=== PATIENT | male | born 1930 | race Asian ===

== ENCOUNTER 2019-08-23 09:50 | Inpatient (IN) | payer MEDICARE, MEDICAID ==
[~2019-08-23] VITALS: Ht 165.1 cm; Wt 67.6 kg
[2019-08-23] VITALS (7 sets, daily range): BP systolic 136–142; BP diastolic 74–88
--- NOTE | 2019-08-23 10:00 | NUR ---
ED Nurse Note: Patient arrived by ambulance from home complaining of nausea and intermittent vomiting for the past 30 days. Patient AxO x 4. Patient on registered nurse cardiac, bed in lowest position. VSS. Blood sent to lab. Addendum: 08/23/19 at 1221 by NFI[facility] ED Nurse Note: Per patient, if he does vomit, it is 2 - 3 hours after eating. No blood in vomit, per patient. No diarrhea, stool formed, but smaller than normal. Patient has lost about 20 lbs since he has been eating less and visited [facility] about a month ago for the same reason as today's visit.
--- NOTE | 2019-08-23 10:09 | NUR ---
ED Nurse Note: RX and PCP office contacted.
[2019-08-23] MEDS ORDERED: VASCEPA1 GM PO (10:14)
[2019-08-23] MEDS ORDERED: LYRICA75 M1 ORAL (10:14)
[2019-08-23] MEDS ORDERED: ATORVASTATIN CA20 MG ORAL (10:14)
[2019-08-23] MEDS ORDERED: TRAMADOL HCL50 MG ORAL (10:14)
[2019-08-23] MEDS ORDERED: FERROUS SULFAT325 MG ORAL (10:14)
[2019-08-23] MEDS ORDERED: TRIAZOLAM0.25 MG PO (10:14)
[2019-08-23] MEDS ORDERED: FLOMAX0.4 MG ORAL (10:14)
[2019-08-23] MEDS ORDERED: MECLIZINE HCL25 MG ORAL (10:14)
[2019-08-23] MEDS ORDERED: PANTOPRAZOLE SO40 MG ORAL (10:14)
[2019-08-23] MEDS ORDERED: CLOPIDOGREL75 MG ORAL (10:14)
[2019-08-23] MEDS ORDERED: NAMENDA5 MG ORAL (10:14)
[2019-08-23] MEDS ORDERED: LOSARTAN POTASS50 MG ORAL (10:14)
[2019-08-23] MEDS ORDERED: Omnipaque-300 100ml vial INJ PRN (10:30)
[2019-08-23 11:00] LABS: HEMOGLOBIN 7.6 G/DL (14.2-18.0); MEAN CORPUSCULAR VOLUME 87 FL (80-99); PLATELET COUNT 94 K/UL (150-450); RED BLOOD COUNT 2.41 M/UL (4.70-6.10); RED CELL DISTRIBUTION WIDTH 13.6 % (11.6-14.8); WHITE BLOOD COUNT 2.9 K/UL (4.8-10.8)
[2019-08-23 11:13] LABS: ANION GAP 13 mmol/L (5-15); BLOOD UREA NITROGEN 27 mg/dL (7-18); CALCIUM 8.9 MG/DL (8.5-10.1); CARBON DIOXIDE 27 MMOL/L (21-32); CHLORIDE 99 MMOL/L (98-107); CREATININE 1.6 MG/DL (0.55-1.30); POTASSIUM 3.6 MMOL/L (3.5-5.1); SODIUM 139 MMOL/L (136-145)
--- NOTE | 2019-08-23 11:17 | Emergency Room Report ---
History of Present Illness General Chief Complaint: Nausea Source: Patient Present Illness HPI Patient is an 88-year-old male who presents after increased nausea and vomiting. Patient had some prior history of similar symptoms in the past. Patient is currently on IV antibiotics for finger infection. Patient recently been hospitalized at [facility]. He reports having postprandial emesis denies any bloody stools. He reports having decreased stool caliber for approximately 1 year. He reports having a negative colonoscopy proximally a year ago. Prior history of appendectomy. He reports having 20 pound weight loss. Allergies: Coded Allergies: No Known Allergies (Unverified , 08/23/19) Patient History Past Medical History: see triage record Reviewed Nursing Documentation: PMH: Agreed; PSxH: Agreed Nursing Documentation-PMH Past Medical History: No Stated History Review of Systems All Other Systems: negative except mentioned in HPI Physical Exam Vital Signs Date Time Temp Pulse Resp B/P (MAP) Pulse Ox O2 Delivery O2 Flow Rate FiO2 08/23/19 09:47 97.9 90 16 144/84 (104) 97 Room Air Sp02 EP Interpretation: reviewed, normal General Appearance: normal inspection, alert, GCS 15, Chronically Ill Head: atraumatic ENT: normal ENT inspection, hearing grossly normal, normal voice Neck: normal inspection, full range of motion, supple, no bony tend Respiratory: normal inspection, lungs clear, normal breath sounds, no respiratory distress, no retraction, no wheezing Cardiovascular #1: regular rate, rhythm, no edema Gastrointestinal: normal inspection, normal bowel sounds, soft, no guarding, no hernia, other - surgical scar Genitourinary: no CVA tenderness Musculoskeletal: normal inspection, back normal, normal range of motion Neurologic: normal inspection, alert, responsive, speech normal Psychiatric: normal inspection, judgement/insight normal, mood/affect normal Medical Decision Making Diagnostic Impression: Primary Impression: Pancytopenia Additional Impressions: Weight loss, unintentional Dehydration ER Course Patient presented for increased generalized weakness. Differential diagnosis include was not limited to anemia, myocardial infarction, cancer, ischemic bowel among others. because of patient's complexity imaging studies and laboratory testing was ordered. Patient was given IV fluids and laboratory testing were ordered. Patient was noted to be pancytopenic with initial hemoglobin greater than 7. Patient had reportedly had intermittent episodes in the past. Old records were obtained from [facility]. Patient was noted to have multiple episodes of postprandial emesis. CT imaging read by radiology showed no acute abnormalities however there are multiple chronic findings see radiology report for full details. Patient does not show any definite evidence of acute bleeding and transfusion will be deferred to inpatient if necessary. Dr. Castañeda was contacted for inpatient management due to panel physician. Labs Test 08/23/19 10:30 White Blood Count 2.9 K/UL (4.8-10.8) Red Blood Count 2.41 M/UL (4.70-6.10) Hemoglobin 7.6 G/DL (14.2-18.0) Hematocrit 21.0 % (42.0-52.0) Mean Corpuscular Volume 87 FL (80-99) Mean Corpuscular Hemoglobin 31.5 PG (27.0-31.0) Mean Corpuscular Hemoglobin Concent 36.3 G/DL (32.0-36.0) Red Cell Distribution Width 13.6 % (11.6-14.8) Platelet Count 94 K/UL (150-450) Mean Platelet Volume 8.1 FL (6.5-10.1) Neutrophils (%) (Auto) % (45.0-75.0) Lymphocytes (%) (Auto) % (20.0-45.0) Monocytes (%) (Auto) % (1.0-10.0) Eosinophils (%) (Auto) % (0.0-3.0) Basophils (%) (Auto) % (0.0-2.0) Differential Total Cells Counted 100 Neutrophils % (Manual) 58 % (45-75) Lymphocytes % (Manual) 33 % (20-45) Monocytes % (Manual) 5 % (1-10) Eosinophils % (Manual) 4 % (0-3) Basophils % (Manual) 0 % (0-2) Band Neutrophils 0 % (0-8) Platelet Estimate Decreased Platelet Morphology Normal Hypochromasia Anisocytosis 1+ Prothrombin Time 11.0 SEC (9.30-11.50) Prothromb Time International Ratio 1.0 (0.9-1.1) Activated Partial Thromboplast Time 25 SEC (23-33) Sodium Level 139 MMOL/L (136-145) Potassium Level 3.6 MMOL/L (3.5-5.1) Chloride Level 99 MMOL/L (98-107) Carbon Dioxide Level 27 MMOL/L (21-32) Anion Gap 13 mmol/L (5-15) Blood Urea Nitrogen 27 mg/dL (7-18) Creatinine 1.6 MG/DL (0.55-1.30) Estimat Glomerular Filtration Rate mL/min (>60) Glucose Level 130 MG/DL (74-106) Calcium Level 8.9 MG/DL (8.5-10.1) Total Bilirubin 0.5 MG/DL (0.2-1.0) Aspartate Amino Transf (AST/SGOT) 29 U/L (15-37) Alanine Aminotransferase (ALT/SGPT) 29 U/L (12-78) Alkaline Phosphatase 79 U/L (46-116) Total Protein 5.6 G/DL (6.4-8.2) Albumin 3.1 G/DL (3.4-5.0) Globulin 2.5 g/dL Albumin/Globulin Ratio 1.2 (1.0-2.7) Lipase 250 U/L (73-393) EKG Diagnostic Results Rate: normal Rhythm: NSR ST Segments: no acute changes Last Vital Signs Date Time Temp Pulse Resp B/P (MAP) Pulse Ox O2 Delivery O2 Flow Rate FiO2 08/23/19 09:47 97.9 90 16 144/84 (104) 97 Room Air Status: unchanged Disposition: ADMITTED INPATIENT Condition: Stable Referrals: NOT CHOSEN IPA/,REFERRING (PCP) Reza Aden MD Aug 23, 2019 11:17
[2019-08-23 11:18] LABS: ALANINE AMINOTRANSFERASE 29 U/L (12-78); ALBUMIN 3.1 G/DL (3.4-5.0); ALBUMIN/GLOBULIN RATIO 1.2 (1.0-2.7); ALKALINE PHOSPHATASE 79 U/L (46-116); ASPARTATE AMINO TRANSFERASE 29 U/L (15-37); BILIRUBIN,TOTAL 0.5 MG/DL (0.2-1.0)
--- NOTE | 2019-08-23 11:45 | NUR ---
ED Nurse Note: Urine sent to lab.
[2019-08-23 11:54] LABS: APPEARANCE,URINE CLEAR; BILIRUBIN, URINE NEGATIVE (NEGATIVE); COLOR,URINE PALE YELLOW; GLUCOSE, URINE (UA) NEGATIVE (NEGATIVE); KETONES,URINE 1+ (NEGATIVE); LEUKOCYTE ESTERASE ,URINE NEGATIVE (NEGATIVE); NITRITE,URINE NEGATIVE (NEGATIVE); PH,URINE 6 (4.5-8.0); PROTEIN,URINE 3+ (NEGATIVE); UROBILINOGEN,URINE NORMAL MG/DL (0.0-1.0)
--- NOTE | 2019-08-23 12:30 | NUR ---
ED Nurse Note: Per Dr. Aden, will wait to see images of CT before transfering pt to floor.
--- NOTE | 2019-08-23 14:05 | NUR ---
ED Nurse Note: Report given to Karen MCCABE.
--- NOTE | 2019-08-23 14:06 | Diagnostic Imaging Report ---
Indication: Abdominal pain Technique: Continuous helical transaxial imaging of the abdomen and pelvis was obtained from the lung bases to the pubic symphysis. No intravenous contrast was administered. Coronal 2-D reformats were also obtained. Automatic Exposure Control was utilized. Total Dose length Product (DLP): 630.[address] Dose Index Volume (CTDIvol): 10.8 mGy Comparison: none Findings: Reticular densities are demonstrated at both lung bases. This is associated with bronchiectasis and indicative of mild fibrosis and scarring. Paraseptal blebs are also noted at the periphery of the lung bases especially anteromedially and posteromedially. Trace pericardial fluid noted. Small hiatal hernia is present. Aorta is mildly calcified. The gallbladder is contracted. There is no adrenal mass. There is a suggestion of a hypodense mass in the right kidney measuring about 2 cm. This is probably cystic but not definitively proven on the current study is obtained. There is no evidence of bowel obstruction. Prostate calcification noted.. Discrete diverticula noted in the colon. There is narrowing of intervertebral discs and accompanying endplate osteophyte formation. Hypertrophied facet joints also demonstrated. IMPRESSION: No acute findings appreciated. Trace pericardial effusion Basilar lung fibrosis with traction bronchiectasis. Mild diverticulosis of the colon. No evidence of acute diverticulitis Hiatal hernia Contracted gallbladder. 2 cm right renal hypodensity probably cysts. 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
--- NOTE | 2019-08-23 15:10 | NUR ---
NURSE NOTES: Called Dr. Castañeda's office and left a message regarding admission orders.
--- NOTE | 2019-08-23 15:46 | NUR ---
NURSE NOTES: Left a second message to Dr. Castañeda office. Waiting for a call back.
[2019-08-23] MEDS ORDERED: Acetaminophen 500mg (ES) tab ORAL PRN (16:45)
--- NOTE | 2019-08-23 19:20 | NUR ---
NURSE NOTES: Received pt from ESTELLE Jones. Pt is awake and resting in bed, in no distress. IV site intact. Bed locked in lowest position, call light within reach. Will continue with plan of care.
[2019-08-23] MEDS ORDERED: D5NS 1,000 ML IV SCH (19:30)
[2019-08-23] MEDS ORDERED: Albuterol/Ipratropium 3ml neb HHN PRN (20:00)
[2019-08-23] MEDS: Tamsulosin 0.4mg cap ORAL SCH (20:13)
--- NOTE | 2019-08-23 22:17 | Pulmonology Progress Note ---
Assessment/Plan Assessment/Plan Pulmonary Consultation HPI Patient is an 88-year old man admitted with nausea and vomiting, worse on eating , noted to have dehydration. Recently on IV antibiotics for finger infection at [facility]. Previously had a negative colonoscopy approximately a year ago. Prior history of appendectomy. He reports having 20 pound weight loss. Denies dysuria/fevers.Denies cough, SOB, chest pain. 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 Allergies: No Known Allergies Past Medical History: Finger infection All Other Systems: negative except mentioned in HPI Physical Exam Vital Signs Noted Date Time Temp Pulse Resp B/P (MAP) Pulse Ox O2 Delivery O2 Flow Rate FiO2 08/23/19 09:47 97.9 90 16 144/84 (104) 97 Room Air General Appearance: normal inspection, alert, GCS 15, Chronically Ill, mild wasting, pale Head: atraumatic ENT: normal ENT inspection, hearing grossly normal, normal voice, dryish mm Neck: normal inspection, full range of motion, supple, no bony tend Respiratory: normal inspection, lungs clear, normal breath sounds, no respiratory distress, no retraction, no wheezing Cardiovascular: regular rate, rhythm, normal HS1, HS2, no edema Gastrointestinal: normal inspection, normal bowel sounds, soft, no guarding, no hernia, other - surgical scar Genitourinary: no CVA tenderness Musculoskeletal: normal inspection, back normal, normal range of motion Neurologic: normal inspection, alert, responsive, speech normal Impression: Recent IV antibiotics for finger infection Nausea and Vomiting, normal Amylase, no intra-abdominal abnormality on CT abdomen Pancytopenia Basal ILD/Bronchiectatic changes Weight loss, unintentional Dehydration Plan: IVF Monitor labs Transfuse PRN O2 PRN HHN PRN R/o DVT, if negative SCD UA CXR Will need outpatient CT chest/PFT Labs Test 08/23/19 10:30 White Blood Count 2.9 K/UL (4.8-10.8) Red Blood Count 2.41 M/UL (4.70-6.10) Hemoglobin 7.6 G/DL (14.2-18.0) Hematocrit 21.0 % (42.0-52.0) Mean Corpuscular Volume 87 FL (80-99) Mean Corpuscular Hemoglobin 31.5 PG (27.0-31.0) Mean Corpuscular Hemoglobin Concent 36.3 G/DL (32.0-36.0) Red Cell Distribution Width 13.6 % (11.6-14.8) Platelet Count 94 K/UL (150-450) Mean Platelet Volume 8.1 FL (6.5-10.1) Neutrophils (%) (Auto) % (45.0-75.0) Lymphocytes (%) (Auto) % (20.0-45.0) Monocytes (%) (Auto) % (1.0-10.0) Eosinophils (%) (Auto) % (0.0-3.0) Basophils (%) (Auto) % (0.0-2.0) Differential Total Cells Counted 100 Neutrophils % (Manual) 58 % (45-75) Lymphocytes % (Manual) 33 % (20-45) Monocytes % (Manual) 5 % (1-10) Eosinophils % (Manual) 4 % (0-3) Basophils % (Manual) 0 % (0-2) Band Neutrophils 0 % (0-8) Platelet Estimate Decreased Platelet Morphology Normal Hypochromasia Anisocytosis 1+ Prothrombin Time 11.0 SEC (9.30-11.50) Prothromb Time International Ratio 1.0 (0.9-1.1) Activated Partial Thromboplast Time 25 SEC (23-33) Sodium Level 139 MMOL/L (136-145) Potassium Level 3.6 MMOL/L (3.5-5.1) Chloride Level 99 MMOL/L (98-107) Carbon Dioxide Level 27 MMOL/L (21-32) Anion Gap 13 mmol/L (5-15) Blood Urea Nitrogen 27 mg/dL (7-18) Creatinine 1.6 MG/DL (0.55-1.30) Estimat Glomerular Filtration Rate mL/min (>60) Glucose Level 130 MG/DL (74-106) Calcium Level 8.9 MG/DL (8.5-10.1) Total Bilirubin 0.5 MG/DL (0.2-1.0) Aspartate Amino Transf (AST/SGOT) 29 U/L (15-37) Alanine Aminotransferase (ALT/SGPT) 29 U/L (12-78) Alkaline Phosphatase 79 U/L (46-116) Total Protein 5.6 G/DL (6.4-8.2) Albumin 3.1 G/DL (3.4-5.0) Globulin 2.5 g/dL Albumin/Globulin Ratio 1.2 (1.0-2.7) Lipase 250 U/L (73-393) EKG: Rate: normal Rhythm: NSR ST Segments: no acute changes Subjective ROS Limited/Unobtainable: No Allergies: Coded Allergies: No Known Allergies (Unverified , 08/23/19) Objective Last 24 Hour Vital Signs Date Time Temp Pulse Resp B/P (MAP) Pulse Ox O2 Delivery O2 Flow Rate FiO2 08/23/19 21:48 99 18 100 Room Air 21 97 18 99 08/23/19 21:46 97 18 99 Room Air 21 08/23/19 18:20 97.4 96 22 144/84 Room Air 08/23/19 16:00 91 08/23/19 16:00 96.6 90 18 141/88 (105) 98 08/23/19 14:59 Room Air 08/23/19 14:10 97.9 96 19 140/84 99 Room Air 08/23/19 13:30 96 19 140/84 99 08/23/19 12:00 92 18 139/83 99 08/23/19 11:00 90 20 142/74 99 08/23/19 10:50 94 17 Room Air 08/23/19 10:00 97.9 96 17 136/82 98 Room Air 08/23/19 09:47 97.9 90 16 144/84 (104) 97 Room Air Laboratory Tests 08/23/19 10:30: White Blood Count 2.9L, Red Blood Count 2.41L, Hemoglobin 7.6L, Hematocrit 21.0L , Mean Corpuscular Volume 87, Mean Corpuscular Hemoglobin 31.5H, Mean Corpuscular Hemoglobin Concent 36.3H, Red Cell Distribution Width 13.6, Platelet Count 94L, Mean Platelet Volume 8.1, Neutrophils (%) (Auto) , Lymphocytes (%) (Auto) , Monocytes (%) (Auto) , Eosinophils (%) (Auto) , Basophils (%) (Auto) , Differential Total Cells Counted 100, Neutrophils % ( Manual) 58, Lymphocytes % (Manual) 33, Monocytes % (Manual) 5, Eosinophils % ( Manual) 4H, Basophils % (Manual) 0, Band Neutrophils 0, Platelet Estimate DecreasedL, Platelet Morphology Normal, Hypochromasia , Anisocytosis 1+, Prothrombin Time 11.0, Prothromb Time International Ratio 1.0, Activated Partial Thromboplast Time 25, Sodium Level 139, Potassium Level 3.6, Chloride Level 99, Carbon Dioxide Level 27, Anion Gap 13, Blood Urea Nitrogen 27H, Creatinine 1.6H, Estimat Glomerular Filtration Rate , Glucose Level 130H, Calcium Level 8.9, Total Bilirubin 0.5, Aspartate Amino Transf (AST/SGOT) 29, Alanine Aminotransferase (ALT/SGPT) 29, Alkaline Phosphatase 79, C-Reactive Protein, Quantitative < 0.4, Total Protein 5.6L, Albumin 3.1L, Globulin 2.5, Albumin/Globulin Ratio 1.2, Lipase 250 08/23/19 11:40: Urine Color Pale yellow, Urine Appearance Clear, Urine pH 6, Urine Specific [place] 1.010, Urine Protein 3+H, Urine Glucose (UA) Negative, Urine Ketones 1+H , Urine Blood 5+H, Urine Nitrite Negative, Urine Bilirubin Negative, Urine Urobilinogen Normal, Urine Leukocyte Esterase Negative, Urine RBC 20-30H, Urine WBC 0, Urine Squamous Epithelial Cells Occasional, Urine Bacteria Occasional Current Medications Medications (Trade) Dose Ordered Sig/Kaya Route PRN Reason Start Time Stop Time Status Last Admin Dose Admin Acetaminophen (Tylenol) 500 mg Q4H PRN ORAL Mild Pain/Temp > 100.5 08/23/19 16:45 09/22/19 16:44 Albuterol/ Ipratropium (Albuterol/ Ipratropium) 3 ml Q6H PRN HHN Shortness of Breath 08/23/19 20:00 08/28/19 19:59 08/23/19 21:43 Barium Sulfate (Readi-Cat 2) 450 ml NOW PRN ORAL Radiology Procedure 08/23/19 10:30 08/25/19 10:19 Dextrose/Sodium Chloride 1,000 ml @ 50 mls/hr Q20H IV 08/23/19 19:30 09/22/19 19:29 08/23/19 19:34 Iohexol (OMNIPAQUE-300 100ml) 100 ml NOW PRN INJ Radiology Procedure 08/23/19 10:30 08/25/19 10:19 Ondansetron HCl (Zofran) 4 mg Q6H PRN IVP Nausea & Vomiting 08/23/19 16:45 09/22/19 16:44 Pantoprazole (Protonix) 40 mg EVERY 12 HOURS IVP 08/23/19 21:00 09/22/19 20:59 Tamsulosin HCl (Flomax) 0.4 mg BID ORAL 08/23/19 20:00 09/22/19 19:59 08/23/19 20:13 Sherif Birch MD Aug 23, 2019 22:17
[2019-08-23] MEDS: Pantoprazole Inj IVP SCH (22:36)
[2019-08-24] VITALS: BP 137/69
[2019-08-24 04:00] VITALS: BP 137/79
--- NOTE | 2019-08-24 07:10 | NUR ---
HAND-OFF: Report given to ESTELLE Jones. Pt in stable condition. Endorsed plan of care.
--- NOTE | 2019-08-24 07:10 | NUR ---
NURSE NOTES: Report received from ESTELLE Packer. In RA. Denies pain or SOB. IV running D5 NS @ 60mL/hr. Bed on lowest position, side rails upx2, brakes engaged. Call light within easy reach. Pt able to demonstrate call light use and acknowledged understanding.
[2019-08-24 07:25] LABS: APPEARANCE,URINE CLEAR; BILIRUBIN, URINE NEGATIVE (NEGATIVE); COLOR,URINE PALE YELLOW; GLUCOSE, URINE (UA) NEGATIVE (NEGATIVE); KETONES,URINE NEGATIVE (NEGATIVE); LEUKOCYTE ESTERASE ,URINE NEGATIVE (NEGATIVE); NITRITE,URINE NEGATIVE (NEGATIVE); PH,URINE 6 (4.5-8.0); PROTEIN,URINE 2+ (NEGATIVE); UROBILINOGEN,URINE NORMAL MG/DL (0.0-1.0)
[2019-08-24 07:26] LABS: HEMATOCRIT 19.9 % (42.0-52.0); MEAN CORPUSCULAR VOLUME 88 FL (80-99); PLATELET COUNT 74 K/UL (150-450); RED BLOOD COUNT 2.25 M/UL (4.70-6.10); RED CELL DISTRIBUTION WIDTH 13.6 % (11.6-14.8); WHITE BLOOD COUNT 3.5 K/UL (4.8-10.8)
--- NOTE | 2019-08-24 07:42 | General Progress Note ---
Assessment/Plan Assessment/Plan: Assessment - N/V, ? etiology - Weight loss - pancytopenia, ? marrow d/o - Azotemia - hematuria - basilar lung fibrosis - diverticulosis - hiatal hernia - ASCVD Recommendations - PPI - clears / advance as tolerated - check OB - Heme evaluation - EGD today Subjective Allergies: Coded Allergies: No Known Allergies (Unverified , 08/23/19) Subjective No events s/p blood transfusion platelets better no vomiting Objective Last 24 Hour Vital Signs Date Time Temp Pulse Resp B/P (MAP) Pulse Ox O2 Delivery O2 Flow Rate FiO2 08/24/19 06:40 89 16 96 Room Air 21 08/24/19 04:00 96 08/24/19 04:00 98.0 96 20 137/79 (98) 95 08/24/19 00:00 97.9 98 18 137/69 (91) 94 08/24/19 00:00 98 08/23/19 21:48 99 18 100 Room Air 97 18 99 08/23/19 21:46 97 18 99 Room Air 21 08/23/19 21:00 Room Air 08/23/19 20:00 98 08/23/19 20:00 97.6 98 20 142/81 (101) 93 08/23/19 18:20 97.4 96 22 144/84 Room Air 08/23/19 16:00 91 08/23/19 16:00 96.6 90 18 141/88 (105) 98 08/23/19 14:59 Room Air 08/23/19 14:10 97.9 96 19 140/84 99 Room Air 08/23/19 13:30 96 19 140/84 99 08/23/19 12:00 92 18 139/83 99 08/23/19 11:00 90 20 142/74 99 08/23/19 10:50 94 17 Room Air 08/23/19 10:00 97.9 96 17 136/82 98 Room Air 08/23/19 09:47 97.9 90 16 144/84 (104) 97 Room Air Intake and Output 08/23/19 08/24/19 19:00 07:00 Intake Total 1500 ml Output Total 250 ml 900 ml Balance 1250 ml -900 ml Intake Oral 500 ml IV Total 1000 ml Output Urine Total 250 ml 900 ml # Voids 1 2 # Bowel Movements 1 Laboratory Tests 08/23/19 10:30: White Blood Count 2.9L, Red Blood Count 2.41L, Hemoglobin 7.6L, Hematocrit 21.0L , Mean Corpuscular Volume 87, Mean Corpuscular Hemoglobin 31.5H, Mean Corpuscular Hemoglobin Concent 36.3H, Red Cell Distribution Width 13.6, Platelet Count 94L, Mean Platelet Volume 8.1, Neutrophils (%) (Auto) , Lymphocytes (%) (Auto) , Monocytes (%) (Auto) , Eosinophils (%) (Auto) , Basophils (%) (Auto) , Differential Total Cells Counted 100, Neutrophils % ( Manual) 58, Lymphocytes % (Manual) 33, Monocytes % (Manual) 5, Eosinophils % ( Manual) 4H, Basophils % (Manual) 0, Band Neutrophils 0, Platelet Estimate DecreasedL, Platelet Morphology Normal, Hypochromasia , Anisocytosis 1+, Prothrombin Time 11.0, Prothromb Time International Ratio 1.0, Activated Partial Thromboplast Time 25, Sodium Level 139, Potassium Level 3.6, Chloride Level 99, Carbon Dioxide Level 27, Anion Gap 13, Blood Urea Nitrogen 27H, Creatinine 1.6H, Estimat Glomerular Filtration Rate , Glucose Level 130H, Calcium Level 8.9, Total Bilirubin 0.5, Aspartate Amino Transf (AST/SGOT) 29, Alanine Aminotransferase (ALT/SGPT) 29, Alkaline Phosphatase 79, C-Reactive Protein, Quantitative < 0.4, Total Protein 5.6L, Albumin 3.1L, Globulin 2.5, Albumin/Globulin Ratio 1.2, Lipase 250 08/23/19 11:40: Urine Color Pale yellow, Urine Appearance Clear, Urine pH 6, Urine Specific [place] 1.010, Urine Protein 3+H, Urine Glucose (UA) Negative, Urine Ketones 1+H , Urine Blood 5+H, Urine Nitrite Negative, Urine Bilirubin Negative, Urine Urobilinogen Normal, Urine Leukocyte Esterase Negative, Urine RBC 20-30H, Urine WBC 0, Urine Squamous Epithelial Cells Occasional, Urine Bacteria Occasional 08/24/19 06:07: White Blood Count [Pending], Red Blood Count [Pending], Hemoglobin [Pending], Hematocrit [Pending], Mean Corpuscular Volume [Pending], Mean Corpuscular Hemoglobin [Pending], Mean Corpuscular Hemoglobin Concent [Pending], Red Cell Distribution Width [Pending], Platelet Count [Pending], Mean Platelet Volume [ Pending], Neutrophils (%) (Auto) [Pending], Lymphocytes (%) (Auto) [Pending], Monocytes (%) (Auto) [Pending], Eosinophils (%) (Auto) [Pending], Basophils (%) (Auto) [Pending], Sodium Level [Pending], Potassium Level [Pending], Chloride Level [Pending], Carbon Dioxide Level [Pending], Blood Urea Nitrogen [Pending], Creatinine [Pending], Estimat Glomerular Filtration Rate [Pending], Glucose Level [Pending], Calcium Level [Pending], Total Bilirubin [Pending], Aspartate Amino Transf (AST/SGOT) [Pending], Alanine Aminotransferase (ALT/SGPT) [Pending] , Alkaline Phosphatase [Pending], Total Protein [Pending], Albumin [Pending], Globulin [Pending], Hemoglobin A1c 7.1H, Uric Acid [Pending], Phosphorus Level [ Pending], Magnesium Level [Pending], Iron Level [Pending], Unsaturated Iron Binding [Pending], Ferritin [Pending], Gamma Glutamyl Transpeptidase [Pending], Troponin I [Pending], Pro-B-Type Natriuretic Peptide [Pending], Triglycerides Level [Pending], Cholesterol Level [Pending], LDL Cholesterol [Pending], HDL Cholesterol [Pending], Cholesterol/HDL Ratio [Pending], Vitamin B12 Level [ Pending], Folate [Pending], Thyroid Stimulating Hormone (TSH) [Pending] 08/24/19 06:22: Urine Color Pale yellow, Urine Appearance Clear, Urine pH 6, Urine Specific [place] 1.010, Urine Protein 2+H, Urine Glucose (UA) Negative, Urine Ketones Negative, Urine Blood 5+H, Urine Nitrite Negative, Urine Bilirubin Negative, Urine Urobilinogen Normal, Urine Leukocyte Esterase Negative, Urine RBC [Pending ], Urine WBC [Pending], Urine Squamous Epithelial Cells [Pending], Urine Bacteria [Pending], Urine Random Sodium 102 Height (Feet): 5 Height (Inches): 3.00 Weight (Pounds): 149 Objective Thin man NCAT supple CTA RR Abd soft NT ND no edema non focal Radha Lundy MD Aug 24, 2019 07:42
--- NOTE | 2019-08-24 07:45 | NUR ---
NURSE NOTES: Reported Hgb and Hct lab results to Dr. Castañeda. Order received from Dr. Castañeda to put physician consult to [facility] and to give him a call.
--- NOTE | 2019-08-24 07:48 | NUR ---
NURSE NOTES: Order given to CN by Dr. Castañeda to send Pt. to [facility].
--- NOTE | 2019-08-24 07:50 | NUR ---
NURSE NOTES: Left a message to Dr. Mcgowan regarding Hgb and Hct. Waiting for a call back.
[2019-08-24 07:52] LABS: HEMOGLOBIN 6.9 G/DL (14.2-18.0)
[2019-08-24 07:55] LABS: ALANINE AMINOTRANSFERASE 28 U/L (12-78); ALBUMIN 2.8 G/DL (3.4-5.0); ALBUMIN/GLOBULIN RATIO 1.3 (1.0-2.7); ALKALINE PHOSPHATASE 67 U/L (46-116); ANION GAP 12 mmol/L (5-15); ASPARTATE AMINO TRANSFERASE 28 U/L (15-37); BILIRUBIN,TOTAL 0.5 MG/DL (0.2-1.0); BLOOD UREA NITROGEN 25 mg/dL (7-18); CALCIUM 7.8 MG/DL (8.5-10.1); CARBON DIOXIDE 26 MMOL/L (21-32); CHLORIDE 102 MMOL/L (98-107); CHOLESTEROL 113 MG/DL (< 200); CREATININE 1.5 MG/DL (0.55-1.30); FERRITIN 357 NG/ML (8-388); GAMMA GLUTAMYL TRANSPEPTIDASE 21 U/L (5-85); HDL CHOLESTEROL 38 MG/DL (40-60); PHOSPHORUS 2.8 MG/DL (2.5-4.9); POTASSIUM 3.3 MMOL/L (3.5-5.1); SODIUM 140 MMOL/L (136-145); TRIGLYCERIDES 100 MG/DL (30-150)
[2019-08-24 07:58] LABS: % IRON SATURATION 91 % (15-50); IRON 144 ug/dL (50-175); TOTAL IRON BINDING CAPACITY 158 ug/dL (250-450)
[2019-08-24 08:00] VITALS: BP 146/83
--- NOTE | 2019-08-24 08:18 | NUR ---
NURSE NOTES: Informed Renetta, daughter, Pt. is not stable enough to be transferred to another hospital at this moment per MD due to lab results. Daughter has agreed.
[2019-08-24] MEDS: Tamsulosin 0.4mg cap ORAL SCH ×2 (09:42→17:51)
[2019-08-24] MEDS: Pantoprazole Inj IVP SCH ×2 (09:43→20:57)
--- NOTE | 2019-08-24 09:52 | NUR ---
RADIOLOGY DEPT., CHEST X-RAY DONE.-P.DYE
[2019-08-24] MEDS ORDERED: Omnipaque-300 100ml vial INJ PRN (10:30)
--- NOTE | 2019-08-24 11:52 | Diagnostic Imaging Report ---
Indication: Dyspnea Comparison: None A single view chest radiograph was obtained. Findings: No definite infiltrate or pulmonary vascular congestion identified. The heart is enlarged. The aorta is mildly enlarged consistent with atherosclerotic vascular disease. The bones are osteopenic. Impression: No acute disease
--- NOTE | 2019-08-24 11:55 | NUR ---
NURSE NOTES: Blood transfusion started. Education has been given regarding S/S to communicate with RN. VS before transfusion BP 140/83 P 97, O2 sat 96%, RR17 and T97.9.
[2019-08-24 12:00] VITALS: BP 140/79
--- NOTE | 2019-08-24 13:23 | NUR ---
TRANSFER TO FLOOR: Patient transferred to [facility], per Dr. Castañeda. Report given to ESTELLE Moon. Belongings and medications given to Red. Family and or S/O informed of transfer.
--- NOTE | 2019-08-24 13:56 | Pulmonology Progress Note ---
Assessment/Plan Assessment/Plan Pulmonary Consultation HPI Patient is an 88-year old man admitted with nausea and vomiting, worse on eating , noted to have dehydration. Recently on IV antibiotics for finger infection at [facility]. Previously had a negative colonoscopy approximately a year ago. Prior history of appendectomy. He reports having 20 pound weight loss. Denies dysuria/fevers.Denies cough, SOB, chest pain. 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 Worsening anemia, GI following Allergies: No Known Allergies Past Medical History: Finger infection All Other Systems: negative except mentioned in HPI Physical Exam Vital Signs Noted General Appearance: normal inspection, alert, GCS 15, Chronically Ill, mild wasting, pale Head: atraumatic ENT: normal ENT inspection, hearing grossly normal, moist mm Neck: normal inspection, full range of motion, supple, no bony tend Respiratory: normal inspection, lungs clear, normal breath sounds, no respiratory distress, no retraction, no wheezing Cardiovascular: regular rate, rhythm, normal HS1, HS2, no edema Gastrointestinal: normal inspection, normal bowel sounds, soft, no guarding, no hernia, other - surgical scar Genitourinary: no CVA tenderness Musculoskeletal: normal inspection, back normal, normal range of motion Neurologic: normal inspection, alert, responsive, speech normal Impression: Recent IV antibiotics for finger infection Nausea and Vomiting, normal Amylase, no intra-abdominal abnormality on CT abdomen Worsening anemia Pancytopenia Basal ILD/Bronchiectatic changes Weight loss, unintentional Dehydration ASVCD - elevated NPA Plan: IVF PRN Monitor labs Transfuse PRN O2 PRN HHN PRN R/o DVT, if negative SCD UA CXR - no infiltartes Will need outpatient CT chest/PFT Labs Test 08/23/19 10:30 White Blood Count 2.9 K/UL (4.8-10.8) Red Blood Count 2.41 M/UL (4.70-6.10) Hemoglobin 7.6 G/DL (14.2-18.0) Hematocrit 21.0 % (42.0-52.0) Mean Corpuscular Volume 87 FL (80-99) Mean Corpuscular Hemoglobin 31.5 PG (27.0-31.0) Mean Corpuscular Hemoglobin Concent 36.3 G/DL (32.0-36.0) Red Cell Distribution Width 13.6 % (11.6-14.8) Platelet Count 94 K/UL (150-450) Mean Platelet Volume 8.1 FL (6.5-10.1) Neutrophils (%) (Auto) % (45.0-75.0) Lymphocytes (%) (Auto) % (20.0-45.0) Monocytes (%) (Auto) % (1.0-10.0) Eosinophils (%) (Auto) % (0.0-3.0) Basophils (%) (Auto) % (0.0-2.0) Differential Total Cells Counted 100 Neutrophils % (Manual) 58 % (45-75) Lymphocytes % (Manual) 33 % (20-45) Monocytes % (Manual) 5 % (1-10) Eosinophils % (Manual) 4 % (0-3) Basophils % (Manual) 0 % (0-2) Band Neutrophils 0 % (0-8) Platelet Estimate Decreased Platelet Morphology Normal Hypochromasia Anisocytosis 1+ Prothrombin Time 11.0 SEC (9.30-11.50) Prothromb Time International Ratio 1.0 (0.9-1.1) Activated Partial Thromboplast Time 25 SEC (23-33) Sodium Level 139 MMOL/L (136-145) Potassium Level 3.6 MMOL/L (3.5-5.1) Chloride Level 99 MMOL/L (98-107) Carbon Dioxide Level 27 MMOL/L (21-32) Anion Gap 13 mmol/L (5-15) Blood Urea Nitrogen 27 mg/dL (7-18) Creatinine 1.6 MG/DL (0.55-1.30) Estimat Glomerular Filtration Rate mL/min (>60) Glucose Level 130 MG/DL (74-106) Calcium Level 8.9 MG/DL (8.5-10.1) Total Bilirubin 0.5 MG/DL (0.2-1.0) Aspartate Amino Transf (AST/SGOT) 29 U/L (15-37) Alanine Aminotransferase (ALT/SGPT) 29 U/L (12-78) Alkaline Phosphatase 79 U/L (46-116) Total Protein 5.6 G/DL (6.4-8.2) Albumin 3.1 G/DL (3.4-5.0) Globulin 2.5 g/dL Albumin/Globulin Ratio 1.2 (1.0-2.7) Lipase 250 U/L (73-393) EKG: Rate: normal Rhythm: NSR ST Segments: no acute changes Subjective ROS Limited/Unobtainable: No Allergies: Coded Allergies: No Known Allergies (Unverified , 08/23/19) Objective Last 24 Hour Vital Signs Date Time Temp Pulse Resp B/P (MAP) Pulse Ox O2 Delivery O2 Flow Rate FiO2 08/24/19 12:00 95 08/24/19 12:00 97.1 86 19 140/79 (99) 97 08/24/19 09:00 Room Air 08/24/19 08:00 100 08/24/19 08:00 98.2 96 18 146/83 (104) 97 08/24/19 06:40 89 16 96 Room Air 21 08/24/19 04:00 96 08/24/19 04:00 98.0 96 20 137/79 (98) 95 08/24/19 00:00 97.9 98 18 137/69 (91) 94 08/24/19 00:00 98 08/23/19 21:48 99 18 100 Room Air 21 97 18 99 08/23/19 21:46 97 18 99 Room Air 21 08/23/19 21:00 Room Air 08/23/19 20:00 98 08/23/19 20:00 97.6 98 20 142/81 (101) 93 08/23/19 18:20 97.4 96 22 144/84 Room Air 08/23/19 16:00 91 08/23/19 16:00 96.6 90 18 141/88 (105) 98 08/23/19 14:59 Room Air 08/23/19 14:10 97.9 96 19 140/84 99 Room Air Intake and Output 08/23/19 08/24/19 19:00 07:00 Intake Total 1500 ml Output Total 250 ml 900 ml Balance 1250 ml -900 ml Intake Oral 500 ml IV Total 1000 ml Output Urine Total 250 ml 900 ml # Voids 1 2 # Bowel Movements 1 Laboratory Tests 08/24/19 06:07: White Blood Count 3.5L, Red Blood Count 2.25L, Hemoglobin 6.9*L, Hematocrit 19.9L, Mean Corpuscular Volume 88, Mean Corpuscular Hemoglobin 30.8, Mean Corpuscular Hemoglobin Concent 34.8, Red Cell Distribution Width 13.6, Platelet Count 74L, Mean Platelet Volume 8.4, Neutrophils (%) (Auto) , Lymphocytes (%) ( Auto) , Monocytes (%) (Auto) , Eosinophils (%) (Auto) , Basophils (%) (Auto) , Differential Total Cells Counted 100, Neutrophils % (Manual) 73, Lymphocytes % ( Manual) 16L, Monocytes % (Manual) 8, Eosinophils % (Manual) 2, Basophils % ( Manual) 1, Band Neutrophils 0, Platelet Estimate DecreasedL, Platelet Morphology Normal, Red Blood Cell Morphology , Hypochromasia 3+, Sodium Level 140, Potassium Level 3.3L, Chloride Level 102, Carbon Dioxide Level 26, Anion Gap 12, Blood Urea Nitrogen 25H, Creatinine 1.5H, Estimat Glomerular Filtration Rate , Glucose Level 136H, Hemoglobin A1c 7.1H, Uric Acid 4.7, Calcium Level 7.8L, Phosphorus Level 2.8, Magnesium Level 1.3L, Iron Level 144, Total Iron Binding Capacity 158L, Percent Iron Saturation 91H, Unsaturated Iron Binding 14L , Ferritin 357, Total Bilirubin 0.5, Gamma Glutamyl Transpeptidase 21, Aspartate Amino Transf (AST/SGOT) 28, Alanine Aminotransferase (ALT/SGPT) 28, Alkaline Phosphatase 67, Troponin I 0.053, Pro-B-Type Natriuretic Peptide 846H, Total Protein 4.9L, Albumin 2.8L, Globulin 2.1, Albumin/Globulin Ratio 1.3, Triglycerides Level 100, Cholesterol Level 113, LDL Cholesterol 60, HDL Cholesterol 38L, Cholesterol/HDL Ratio 3.0L, Vitamin B12 Level 1124H, Folate 18.2, Thyroid Stimulating Hormone (TSH) 1.227, HIV (1&2) Antibody Rapid Negative 08/24/19 06:22: Urine Color Pale yellow, Urine Appearance Clear, Urine pH 6, Urine Specific [place] 1.010, Urine Protein 2+H, Urine Glucose (UA) Negative, Urine Ketones Negative, Urine Blood 5+H, Urine Nitrite Negative, Urine Bilirubin Negative, Urine Urobilinogen Normal, Urine Leukocyte Esterase Negative, Urine RBC TntcH, Urine WBC 0-2, Urine Squamous Epithelial Cells Occasional, Urine Bacteria Occasional, Urine Fine Granular Casts 0-2H, Urine Random Sodium 102 Current Medications Medications (Trade) Dose Ordered Sig/Kaya Route PRN Reason Start Time Stop Time Status Last Admin Dose Admin Acetaminophen (Tylenol) 500 mg Q4H PRN ORAL Mild Pain/Temp > 100.5 08/24/19 14:00 09/22/19 13:59 Albuterol/ Ipratropium (Albuterol/ Ipratropium) 3 ml Q6H PRN HHN Shortness of Breath 08/24/19 14:00 08/28/19 19:59 Barium Sulfate (Readi-Cat 2) 450 ml NOW PRN ORAL Radiology Procedure 08/24/19 13:30 08/25/19 10:19 Dextrose/Sodium Chloride 1,000 ml @ 50 mls/hr Q20H IV 08/24/19 14:00 09/22/19 13:59 Iohexol (OMNIPAQUE-300 100ml) 100 ml NOW PRN INJ Radiology Procedure 08/24/19 10:30 08/25/19 10:19 Magnesium Sulfate 100 ml @ 100 mls/hr Q1H IVPB 08/24/19 14:00 08/24/19 16:59 Ondansetron HCl (Zofran) 4 mg Q6H PRN IVP Nausea & Vomiting 08/24/19 14:00 09/22/19 13:59 Pantoprazole (Protonix) 40 mg EVERY 12 HOURS IVP 08/24/19 21:00 09/22/19 20:59 Tamsulosin HCl (Flomax) 0.4 mg BID ORAL 08/24/19 18:00 09/22/19 19:59 Sherif Birch MD Aug 24, 2019 13:56
--- NOTE | 2019-08-24 13:58 | NUR ---
RD ASSESSMENT & RECOMMENDATIONS SEE CARE ACTIVITY FOR COMPLETE ASSESSMENT DAILY ESTIMATED NEEDS: Needs based on Wt loss/ 56kg 30-35 kcals/kg 1613-2074 total kcals 1-1.5 g protein/kg 56-84 g total protein 25-30 mL/kg 0955-2518 total fluid mLs NUTRITION DIAGNOSIS: * Increased kcal/prot needs R/T recent wt loss as evidenced by pt reports significant wt loss of ~20lbs/14% in 3 months, reports poor appetite, c/o N/V. * Altered nutrition related lab values R/T diabetes, clinical condition as evidenced by A1C of 7.1, low K (3.3), low mag (1.3). CURRENT DIET:CLEAR LIQUID DIET PO DIET RECOMMENDATIONS: Advance diet per MD -> CCHO MED/ soft easy chew texture (pt is edentulous) ADDITIONAL RECOMMENDATIONS: * Calibrated bedscale wt for accurate CBW -> weekly wt monitoring given recent wt loss * Ensure Clear TID w/ meals while on CLEAR LIQUID DIET * Consider appetite stimulant -> pt reports "no appetite" for a long period of time + wt loss * Monitor for diet advancement, PO tolerance and acceptance * Monitor BGs, need for hypoglycemic agents (A1C 7.1)
[2019-08-24] MEDS ORDERED: Acetaminophen 500mg (ES) tab ORAL PRN (14:00)
[2019-08-24] MEDS ORDERED: Albuterol/Ipratropium 3ml neb HHN PRN (14:00)
--- NOTE | 2019-08-24 14:16 | NUR ---
NURSE NOTES: RN RECEIVED PT FROM ESTELLE HOFFMANN FROM TELEMETRY. PT IN STABLE CONDITION. IN NO APPARENT DISTRESS. FIRST BAG OF PRBC RUNNING ON RIGHT FOREARM. IV SITE ASYMPTOMATIC, PATENT AND INTACT. BELONGINGS CHECKED, AND ALL ACCOUNTED. HEARING AID IN PT'S LEFT EAR. PT DOES NOT HAVE DENTURES AT BEDSIDE. PT STATES HE HAS THEM AT HOME. PT MADE AWARE OF EGD FOR TOMORROW. PT VERBALIZED UNDERSTANDING. PT EDUCATED ON FALL/SAFETY PRECAUTIONS AND HOW TO USE CALL LIGHT. EDUCATED TO NOT WALK INDEPENDENTLY. BED IN LOWEST POSITION WITH BEDSIDE RAILS X2 RAISED. HOB ELEVATED, IN SEMI-LO'S POSITION. BED ALARM ON ZONE 1. IN NO APPARENT DISTRESS AT THIS TIME. WILL CONTINUE TO MONITOR.
--- NOTE | 2019-08-24 14:29 | NUR ---
NURSE NOTES: DR HERNANDEZ MADE AWARE FAMILY WISHES TO PLACE PT TO A SNF UPON DISCHARGE. PER DAUGHTER VIRGIE, PT'S CAN NO LONGER TAKE CARE OF PT. DR HERNANDEZ MADE AWARE WITH ORDER FOR CASE MANAGEMENT CONSULT FOR [facility].
--- NOTE | 2019-08-24 14:45 | Consultation ---
DATE OF CONSULTATION: 08/24/2019 CHIEF COMPLAINT: I was asked to see this patient by Dr. Shawn Castañeda for evaluation of vomiting. HISTORY OF PRESENT ILLNESS: The patient is an 88-year-old Icelandic man, who comes into the hospital due to nausea and vomiting. The patient has had a recent hospitalization at the outside hospital where he received antibiotics for hand infection. The patient states he has had approximately 20 pounds weight loss. There was a report of colonoscopy done about a year ago which was reportedly negative and details are not clear. CT scan of the abdomen and pelvis done last night which showed only a hiatal hernia and diverticulosis as well as incidental atherosclerotic cardiovascular disease and basal pulmonary fibrosis. However, the patient's blood count showed pancytopenia of unclear etiology. The patient now admitted for further evaluation and care. PAST MEDICAL HISTORY: History of diverticulosis, pancytopenia, hiatal hernia. ALLERGIES: None. MEDICATIONS: See the chart list for details. FAMILY HISTORY: Noncontributory. SOCIAL HISTORY: The patient is Icelandic speaking. PHYSICAL EXAMINATION: GENERAL: Thin elderly man, seen in his room with the nurse at bedside. HEENT: Normocephalic and atraumatic. Sclerae anicteric. Oropharynx clear. NECK: Supple. CHEST: Clear to auscultation. CARDIOVASCULAR: Revealed a regular rate. ABDOMEN: Good bowel sounds. There is no organomegaly or tenderness. EXTREMITIES: Revealed no edema. NEUROLOGIC: Grossly nonfocal. LABORATORY DATA: Noted. ASSESSMENT: This patient presents with significant degree of pancytopenia of unclear etiology. Given the patient's weight loss and pancytopenia, a bone marrow pathology has to be entertained. The patient's stool occult blood should be checked. An endoscopy can be done given his nausea and vomiting, which he had prior to admission. His weight loss concerning but it is unclear whether this is a gastrointestinal basis or other pathology is concerned. The patient's stool occult blood should be checked and the patient can have endoscopy later this week and possible colonoscopy later day. RECOMMENDATIONS: Per above discussion and per orders written in the chart. Thank you for asking me to participate in care this patient. Radha Lundy M.D. DR: Cherrie JOB#: [id number] CC: ADRYAN
--- NOTE | 2019-08-24 15:00 | History and Physical Report ---
DATE OF ADMISSION: 08/23/2019 HISTORY OF PRESENT ILLNESS: The patient speaks Kinyarwanda only. Does not speak Hong Konger. The patient is here for increased vomiting and weight loss, somewhat cachectic. Recently was put on antibiotics due to hand infection at [place]. The patient also has pancytopenia, anemia, postprandial emesis, and azotemia. The patient admitted for those reasons. PAST MEDICAL HISTORY: Iron deficiency anemia, hyperlipidemia, hypertension, GERD, neuropathy, BPH, chronic pain syndrome, insomnia, weight loss, history of anemia. MEDICATIONS: Lipitor, Plavix, ferrous sulfate, Cozaar, Protonix, Lyrica, Flomax, and calcium. PAST SURGICAL HISTORY: Denies. ALLERGIES: No known allergies. FAMILY HISTORY: Noncontributory. SOCIAL HISTORY: Apparently has no history of smoking, alcohol, or illicit drugs. Kinyarwanda speaking only. REVIEW OF SYSTEMS: HEENT: Denies headaches. RESPIRATORY: Denies shortness of breath. Denies cough. CARDIOVASCULAR: Denies chest pain. GASTROINTESTINAL: Reports vomiting. Denies abdominal pain. EXTREMITIES: Does have chronic pain syndrome. CENTRAL NERVOUS SYSTEM: Denies any change in vision or speech pattern. Feels weak. PHYSICAL EXAMINATION: VITAL SIGNS: Temperature 97.9, pulse is 98, blood pressure 137/69. HEENT: PERRLA. NECK: Supple. No lymphadenopathy. CHEST: Clear to auscultation. CARDIOVASCULAR: Regular rate and rhythm. No murmur or extra sound. GASTROINTESTINAL: Soft, nontender. No organomegaly. EXTREMITIES: No edema. Reflexes equal on both sides. Has somewhat cachexia. LABORATORY DATA: WBC of 2.9, hemoglobin 7.6, platelets of 94. Sodium 139, potassium 3.6, BUN of 27, creatinine 1.6, glucose of 130. ASSESSMENT AND PLAN: Azotemia, pancytopenia, anemia, vomiting. Recent antibiotic due to hand infection. At this point, the hand looks good and it is not warm to touch. No abscesses are seen. It is not tender to touch either. I have consulted Dr. Kaushal Mcgowan, Dr. Birch, Dr. Duarte, Dr. Gregorio Thomas, Dr. Lundy for the above-mentioned diagnoses and treatment. Antibiotics per Dr. Gregorio Thomas. The patient is going to also need IV fluids and transfusion and we will see what Dr. Kaushal Mcogwan wants to do for the pancytopenia workup. I will talk with him about this. Shawn Castañeda M.D. DR: MADHU JOB#: [id number] CC:
[2019-08-24] MEDS: D5NS 1,000 ML IV SCH ×2 (15:06→20:58)
--- NOTE | 2019-08-24 15:38 | NUR ---
NURSE NOTES: PT WAS STARTED ON SECOND BAG OF PRBC. VSS. IN NO APPARENT DISTRESS AT THIS TIME. PT TOLERATING WELL. WILL CONTINUE TO MONITOR.
--- NOTE | 2019-08-24 15:43 | NUR ---
CASE MANAGEMENT: INITIAL REVIEW 88YR OLD MALE BIBA FROM HOME CC: NAUSEA SI: PANCYTOPENIA, DEHYDRATION 97.9 90 16 114/84 97% ON RA H/H 7.6/21.0 BUN 27 CREAT 1.6 BG 130 IS: IV ZOFRAN X1 IVF NS BOLUS X1 : 4E TELE UNIT DCP: HOME WHEN MEDICALLY CLEARED PLAN: CT ABD CASE MANAGEMENT: REVIEW 08/24/19 SI: PANCYTOPENIA, DEHYDRATION 98.2 96 18 146/83 97% ON RA CA+7.8; MG 1.3; WBC 3.5; RBC 2.25; K+ 3.3; H/H 6.9/19.9 BUN 25 CREAT 1.5 BG 136 IS: IV MG SULFATE X4 BAGS IV KCL X3 BAGS IV PROTONIX Q12HR IVF DEXTROSE @50ML/HR : 4E TELE UNIT DCP: HOME WHEN MEDICALLY CLEARED PLAN: BL TX X2 POSS EGD CT ABD SHOWS- hiatal hernia and diverticulosis bone marrow patholog
--- NOTE | 2019-08-24 15:57 | NUR ---
DISCHARGE PLANNING: PATIENT HAS BEEN REFERRED TO [facility] T:[phone] F:[phone] CLINICALS HAVE BEEN FAXED WAITING FOR RESPONSE WILL F/U
[2019-08-24 16:00] VITALS: BP 150/88
--- NOTE | 2019-08-24 18:45 | NUR ---
NURSE NOTES: PT FINISHED SECOND UNIT OF PRBC. VITALS STABLE. PT DENIES PAIN. IN NO APPARENT DISTRESS AT THIS TIME. WILL CONTINUE TO MONITOR.
--- NOTE | 2019-08-24 19:54 | NUR ---
HAND-OFF: Report given to Joan DONNELLY RN.
[2019-08-24 20:00] VITALS: BP 153/92
--- NOTE | 2019-08-24 21:15 | Consultation ---
DATE OF CONSULTATION: 08/24/2019 INFECTIOUS DISEASES CONSULTATION CONSULTING PHYSICIAN: Gregorio Thomas M.D. PRIMARY ATTENDING PHYSICIAN: Shawn Castañeda M.D. REASON FOR CONSULT: Pancytopenia and recent finger osteomyelitis. HISTORY OF PRESENT ILLNESS: The patient is an 88-year-old Maltese male, admitted yesterday from home complaining of weakness, nausea, vomiting. The patient had admission to [facility]. According to the notes of the hospital, he had an admission on 07/16/2019 to [place] [facility] with MRSA sepsis and first left carpometacarpal osteomyelitis and on second admission had also pancytopenia that was attributed to taking Zyvox. PAST MEDICAL HISTORY: Significant for hypertension, prostatic hypertrophy, chronic kidney disease, Alzheimer's dementia, MRSA sepsis, first left carpometacarpal osteomyelitis, lung fibrosis. ALLERGIES: No known drug allergy. MEDICATIONS: Magnesium sulphate, potassium chloride, Protonix, Flomax, albuterol, ipratropium, Zofran, Tylenol. SOCIAL HISTORY: , lives at home with . No history of alcohol or drug abuse or smoking. Care of daughter that lives in [place]. REVIEW OF SYSTEMS: He has weight loss and has hearing loss and uses hearing aids. He has no teeth and uses dentures. No coughing. He has nausea. No vomiting today. No dysuria. No diarrhea. Feels generally weak and mostly bedbound. PHYSICAL EXAMINATION: VITAL SIGNS: Temperature 98.2, pulse 96, blood pressure 146/83. GENERAL APPEARANCE: Seems to be in no acute distress. HEAD AND NECK: [place] conjunctivae. No oral lesion. HEART: Normal rate. LUNGS: Clear. ABDOMEN: Soft, flat, nontender. EXTREMITIES: No edema. He has muscle atrophy. NEUROLOGIC: He is awake, alert, responsive. LABORATORY STUDIES: Sodium 140, potassium 3.3, chloride 102, bicarbonate 26, BUN 25, creatinine 1.5, glucose 136. Hemoglobin A1c 7.1. HIV test negative. WBC is 3.5 with hemoglobin 6.9, hematocrit 19.9, platelets 74,000. The patient had a chest x-ray that showed no acute disease. CT scan of the abdomen & pelvis shows lung fibrosis and traction bronchiectasis, mild diverticulosis of colon, contracted gallbladder, prostate calcifications, degenerative changes of spine. IMPRESSION: Pancytopenia. The patient had a recent MRSA sepsis and hand osteomyelitis, it is not clear what medication the patient takes at home. Currently, there is no sign of infection. He has hypertension, prostatic hypertrophy, Alzheimer dementia, chronic kidney disease. RECOMMENDATION: Observe off antibiotic and try to find more information regarding osteomyelitis treatment. At the end of my exam, I thank Dr. Castañeda for involving me in the care of this patient. Gregorio Thomas M.D. DR: NINO JOB#: [id number] CC: ADRYAN
--- NOTE | 2019-08-24 23:59 | NUR ---
NURSE NOTES: Received pt in bed awake, alert and verbal. Breathing on room air. No acute distress noted. IV site intact and asymptomatic. Bed in low and locked position. Call light within reach. will continue to monitor.
[2019-08-25] VITALS (13 sets, daily range): BP systolic 100–166; BP diastolic 80–108
--- NOTE | 2019-08-25 07:30 | NUR ---
NURSE NOTES: Received pt from [facility] RN. Pt is awake and orient. pt is in RA, no SOB or acute respiratory distress noted. pt has intact iv access RFA 20G is running well. pt is NPO from mid night due to EGD. all needs attended, bed is locked and is in the lowest position, call light within easy reach. will continue to monitor.
--- NOTE | 2019-08-25 08:00 | NUR ---
HAND-OFF: Report given to ESTELLE Vu.
[2019-08-25] MEDS ORDERED: fentaNYL 100 mcg/2 mL IV ONE (08:28)
--- NOTE | 2019-08-25 08:32 | NUR ---
DISCHARGED PLANNED: SPOKE TO MICHAEL FROM [facility] PATIENT ACCEPTED TO [facility] T: [phone] FOR NURSE TO NURSE REPORT ROOM# 114A SKILLED WAITING FOR DISCHARGE ORDER
[2019-08-25 08:46] LABS: HEMATOCRIT 29.3 % (42.0-52.0); HEMOGLOBIN 10.2 G/DL (14.2-18.0); MEAN CORPUSCULAR VOLUME 86 FL (80-99); PLATELET COUNT 55 K/UL (150-450); RED CELL DISTRIBUTION WIDTH 12.5 % (11.6-14.8); WHITE BLOOD COUNT 2.5 K/UL (4.8-10.8)
[2019-08-25 08:57] LABS: ANION GAP 6 mmol/L (5-15); BLOOD UREA NITROGEN 15 mg/dL (7-18); CALCIUM 7.5 MG/DL (8.5-10.1); CARBON DIOXIDE 30 MMOL/L (21-32); CHLORIDE 104 MMOL/L (98-107); CREATININE 1.2 MG/DL (0.55-1.30); POTASSIUM 3.3 MMOL/L (3.5-5.1); SODIUM 140 MMOL/L (136-145)
[2019-08-25] MEDS: Tamsulosin 0.4mg cap ORAL SCH ×2 (09:00→17:14)
[2019-08-25] MEDS: Pantoprazole Inj IVP SCH ×2 (09:00→20:47)
[2019-08-25] MEDS ORDERED: Propofol 200mg/20ml IV ONE (09:00)
--- NOTE | 2019-08-25 09:00 | NUR ---
NURSE NOTES: pt is stable, left unit for GI lab, waiting to come back.
[2019-08-25] MEDS ORDERED: NS 500ML IVPB ONE (09:05)
--- NOTE | 2019-08-25 09:13 | Pre-Procedure Note/Attestation ---
Pre-Procedure Note/Attestation Complete Prior to Procedure Planned Procedure: not applicable Procedure Narrative: egd Indications for Procedure Pre-Operative Diagnosis: anemia Attestation I attest that I discussed the nature of the procedure; its benefits; risks and complications; and alternatives (and the risks and benefits of such alternatives ), prior to the procedure, with the patient (or the patient's legal major account representative). I attest that, if there was a reasonable possibility of needing a blood transfusion, the patient (or the patient's legal major account representative) was given the [facility] standardized written summary, pursuant to the [place] Blood Safety Act ([place] Health and Safety Code # 1645, as amended). I attest that I re-evaluated the patient just prior to the surgery and that there has been no change in the patient's H&P, except as documented below: Radha Lundy MD Aug 25, 2019 09:13
--- NOTE | 2019-08-25 09:33 | Endoscopy Procedure Note ---
Endoscopy Procedure Note General Indication for Procedure: anemia, N/V Procedures Performed: EGD Operative Findings/Diagnosis: mild gastritis Specimen: yes Pt Tolerated Procedure Well: Yes Estimated Blood Loss: none Anesthesia Anesthesiologist: Derek Anesthesia: MAC Inserted Devices Implant(s) used?: No GI Core Measures 50 yrs or older w/o bx or poly: Not Applicable 10yrs. F/U recommended: Not Applicable Radha Lundy MD Aug 25, 2019 09:33
--- NOTE | 2019-08-25 09:34 | Brief Operative Note ---
Immediate Post Operative Note Operative Note Chief Complaint: N/V, anemia Pre-op Diagnosis: anemia Procedure: EGD, Bx Post-op Diagnosis: mild gastritis Surgeon: shankar Anesthesiologist: Arun Specimen: yes Complications: none Condition: stable Fluids: per anesthesia Estimated Blood Loss: none Drains: none Implant(s) used?: No Radha Lundy MD Aug 25, 2019 09:34
--- NOTE | 2019-08-25 09:38 | Anethesia Preoperative Eval ---
Anesthesia Pre-op PMH/ROS General Date of Evaluation: Aug 25, 2019 Time of Evaluation: 08:52 Anesthesiologist: Mekhi ASA Score: ASA 3 Mallampati Score Class I : Soft palate, uvula, fauces, pillars visible Class II: Soft palate, uvula, fauces visible Class III: Soft palate, base of uvula visible Class IV: Only hard plate visible Mallampati Classification: Class II Surgeon: Catherine Diagnosis: Anemia Surgical Procedure: EGD Anesthesia History: none Family History: no anesthesia problems Allergies: Coded Allergies: No Known Allergies (Unverified , 08/23/19) Medications: see eMAR Patient NPO?: Yes Past Medical History Cardiovascular: Reports: HTN; Denies: CAD, PR, valve dz, arrhythmia, other Pulmonary: Denies: asthma, COPD, LOPEZ, other Gastrointestinal/Genitourinary: Reports: GERD, CRI; Denies: ESRD, other Neurologic/Psychiatric: Reports: depression/anxiety; Denies: dementia, CVA, TIA, other Endocrine: Denies: DM, hypothyroidism, steroids, other HEENT: Denies: cataract (L), cataract (R), glaucoma, DEERING (L), DEERING (R), other Hematology/Immune: Reports: anemia - severe; Denies: DVT, bleeding disorder, other Musculoskeletal/Integumentary: Reports: OA Other: other - malnourished PMH Narrative: as above PSxH Narrative: see H&P Anesthesia Pre-op Phys. Exam Physician Exam Last Vital Signs Date Time Temp Pulse Resp B/P (MAP) Pulse Ox O2 Delivery O2 Flow Rate FiO2 08/25/19 04:00 98.0 84 18 145/80 (101) 95 08/24/19 21:51 Room Air 21 Constitutional: NAD Neurologic: CN 2-12 intact Cardiovascular: RRR, no M/R/G Respiratory: CTA Gastrointestinal: S/NT/ND Airway Exam Mallampati Score: Class II MO: limited Neck: stiff ROM: full Teeth: missing Dentures: no upper, no lower Anesthesia Pre-op A/P Labs Hematology Test 08/25/19 08:30 White Blood Count 2.5 K/UL (4.8-10.8) L Red Blood Count 3.40 M/UL (4.70-6.10) L Hemoglobin 10.2 G/DL (14.2-18.0) #L Hematocrit 29.3 % (42.0-52.0) #L Mean Corpuscular Volume 86 FL (80-99) Mean Corpuscular Hemoglobin 30.1 PG (27.0-31.0) Mean Corpuscular Hemoglobin Concent 34.9 G/DL (32.0-36.0) Red Cell Distribution Width 12.5 % (11.6-14.8) Platelet Count 55 K/UL (150-450) L Mean Platelet Volume 7.5 FL (6.5-10.1) Neutrophils (%) (Auto) % (45.0-75.0) Lymphocytes (%) (Auto) % (20.0-45.0) Monocytes (%) (Auto) % (1.0-10.0) Eosinophils (%) (Auto) % (0.0-3.0) Basophils (%) (Auto) % (0.0-2.0) Neutrophils % (Manual) Pending Lymphocytes % (Manual) Pending Platelet Estimate Pending Platelet Morphology Pending Chemistry Test 08/25/19 08:30 Sodium Level 140 MMOL/L (136-145) Potassium Level 3.3 MMOL/L (3.5-5.1) L Chloride Level 104 MMOL/L (98-107) Carbon Dioxide Level 30 MMOL/L (21-32) Anion Gap 6 mmol/L (5-15) Blood Urea Nitrogen 15 mg/dL (7-18) Creatinine 1.2 MG/DL (0.55-1.30) Estimat Glomerular Filtration Rate mL/min (>60) Glucose Level 142 MG/DL (74-106) H Calcium Level 7.5 MG/DL (8.5-10.1) L Magnesium Level 2.1 MG/DL (1.8-2.4) Studies Pre-op Studies: EKG - NSR Risk Assessment & Plan Assessment: ASA 3 Plan: MAC Status Change Before Surgery: Lucio Chaparor MD Aug 25, 2019 09:38
--- NOTE | 2019-08-25 09:39 | Immediate Post-Op Evaluation ---
Immediate Post-Op Evalulation Immediate Post-Op Evalulation Procedure: EGD with Bx Date of Evaluation: Aug 25, 2019 Time of Evaluation: 09:38 IV Fluids: 300 Blood Products: none Estimated Blood Loss: none Urinary Output: none Blood Pressure Systolic: 156 Blood Pressure Diastolic: 78 Pulse Rate: 82 Respiratory Rate: 20 O2 Sat by Pulse Oximetry: 99 Temperature (Fahrenheit): 97.2 Pain Score (1-10): 1 Nausea: No Vomiting: No Complications none Patient Status: awake, patent, none Hydration Status: adequate Lucio Gaming MD Aug 25, 2019 09:39
--- NOTE | 2019-08-25 10:21 | NUR ---
NURSE NOTES: pt is stable, V/S stable. came back from GI lab. will continue to monitor.
--- NOTE | 2019-08-25 10:47 | 48 Hour Post Anesthesia Eval ---
Post Anesthesia Evaluation Procedure: EGD with Bx Date of Evaluation: Aug 25, 2019 Time of Evaluation: 10:46 Blood Pressure Systolic: 142 0: 91 Pulse Rate: 82 Respiratory Rate: 20 Temperature (Fahrenheit): 97.6 O2 Sat by Pulse Oximetry: 98 Airway: patent Nausea: No Vomiting: No Pain Intensity: 1 Hydration Status: adequate Cardiopulmonary Status: stable Mental Status/LOC: patient returned to baseline Follow-up Care/Observations: n/a Post-Anesthesia Complications: none Follow-up care needed: N/A Lucio Gaming MD Aug 25, 2019 10:47
--- NOTE | 2019-08-25 11:40 | NUR ---
NURSE NOTES: Dr QIU is aware about K 3.3 and other lab results ordered kcl 40meq po once, noted and carried out. will continue to monitor.
--- NOTE | 2019-08-25 11:49 | NUR ---
CASE MANAGEMENT: REVIEW 08/25/19 SI: PANCYTOPENIA, DEHYDRATION. WT LOSS 98.1 82 19 144/87 94% ON RA CA+7.5; WBC 2.5; K+ 3.3; BG 142 IS: IVF DEXTROSE @50ML/HR IVF NS BOLUS X1 IV PROTONIX Q12HR : 4E TELE UNIT DCP: HOME WHEN MEDICALLY CLEARED PLAN: EGD COMPLETE CT ABD SHOWS- hiatal hernia and diverticulosis bone marrow patholog
--- NOTE | 2019-08-25 14:48 | Infectious Diseases Prog Note ---
Assessment/Plan Assessment/Plan IMPRESSION: Pancytopenia. Recent MRSA sepsis and hand osteomyelitis Hypertension, prostatic hypertrophy, Alzheimer dementia, chronic kidney disease. RECOMMENDATION: Observe off antibiotic Subjective ROS Limited/Unobtainable: Yes Respiratory: Reports: no symptoms Gastrointestinal/Abdominal: Reports: no symptoms, other - had EGD & biopsy Allergies: Coded Allergies: No Known Allergies (Unverified , 08/23/19) Objective Vital Signs Last 24 Hour Vital Signs Date Time Temp Pulse Resp B/P (MAP) Pulse Ox O2 Delivery O2 Flow Rate FiO2 08/25/19 12:00 97.9 79 20 156/89 (111) 96 08/25/19 10:47 82 20 98 08/25/19 10:30 98.0 75 19 148/88 (108) 95 08/25/19 10:10 97.7 88 16 142/91 100 Room Air 08/25/19 10:00 87 17 166/98 100 Room Air 08/25/19 09:50 86 15 156/108 100 Nasal Cannula 3 08/25/19 09:40 87 15 159/108 100 Nasal Cannula 3 08/25/19 09:39 82 20 99 08/25/19 09:35 80 15 163/107 100 Nasal Cannula 3 08/25/19 09:31 97.0 76 17 155/89 100 Nasal Cannula 3 08/25/19 09:12 79 18 96 Room Air 21 08/25/19 09:00 Room Air 08/25/19 08:00 98.1 82 19 144/87 (106) 94 08/25/19 04:00 98.0 84 18 145/80 (101) 95 08/25/19 00:00 98.0 85 18 146/90 (108) 94 08/24/19 21:51 90 16 94 Room Air 21 08/24/19 21:00 Room Air 08/24/19 20:00 98.1 91 18 153/92 (112) 96 08/24/19 16:00 98.6 86 21 150/88 (108) 96 Height (Feet): 5 Height (Inches): 5.00 Weight (Pounds): 149 General Appearance: no acute distress HEENT: mucous membranes moist Respiratory/Chest: lungs clear Cardiovascular: normal rate Abdomen: soft, non tender Extremities: no edema Neurologic/Psychiatric: alert, responsive Laboratory Tests Test 08/25/19 08:30 White Blood Count 2.5 K/UL (4.8-10.8) L Red Blood Count 3.40 M/UL (4.70-6.10) L Hemoglobin 10.2 G/DL (14.2-18.0) #L Hematocrit 29.3 % (42.0-52.0) #L Mean Corpuscular Volume 86 FL (80-99) Mean Corpuscular Hemoglobin 30.1 PG (27.0-31.0) Mean Corpuscular Hemoglobin Concent 34.9 G/DL (32.0-36.0) Red Cell Distribution Width 12.5 % (11.6-14.8) Platelet Count 55 K/UL (150-450) L Mean Platelet Volume 7.5 FL (6.5-10.1) Neutrophils (%) (Auto) % (45.0-75.0) Lymphocytes (%) (Auto) % (20.0-45.0) Monocytes (%) (Auto) % (1.0-10.0) Eosinophils (%) (Auto) % (0.0-3.0) Basophils (%) (Auto) % (0.0-2.0) Differential Total Cells Counted 100 Neutrophils % (Manual) 56 % (45-75) Lymphocytes % (Manual) 38 % (20-45) Monocytes % (Manual) 5 % (1-10) Eosinophils % (Manual) 1 % (0-3) Basophils % (Manual) 0 % (0-2) Band Neutrophils 0 % (0-8) Platelet Estimate Decreased L Platelet Morphology Normal Sodium Level 140 MMOL/L (136-145) Potassium Level 3.3 MMOL/L (3.5-5.1) L Chloride Level 104 MMOL/L (98-107) Carbon Dioxide Level 30 MMOL/L (21-32) Anion Gap 6 mmol/L (5-15) Blood Urea Nitrogen 15 mg/dL (7-18) Creatinine 1.2 MG/DL (0.55-1.30) Estimat Glomerular Filtration Rate mL/min (>60) Glucose Level 142 MG/DL (74-106) H Calcium Level 7.5 MG/DL (8.5-10.1) L Magnesium Level 2.1 MG/DL (1.8-2.4) Current Medications Medications (Trade) Dose Ordered Sig/Kaya Route PRN Reason Start Time Stop Time Status Last Admin Dose Admin Acetaminophen (Tylenol) 500 mg Q4H PRN ORAL Mild Pain/Temp > 100.5 08/24/19 14:00 09/22/19 13:59 Albuterol/ Ipratropium (Albuterol/ Ipratropium) 3 ml Q6H PRN HHN Shortness of Breath 08/24/19 14:00 08/28/19 19:59 Dextrose/Sodium Chloride 1,000 ml @ 50 mls/hr Q20H IV 08/24/19 14:00 09/22/19 13:59 08/24/19 20:58 Ondansetron HCl (Zofran) 4 mg Q6H PRN IVP Nausea & Vomiting 08/24/19 14:00 09/22/19 13:59 Pantoprazole (Protonix) 40 mg EVERY 12 HOURS IVP 08/24/19 21:00 09/22/19 20:59 08/24/19 20:57 Tamsulosin HCl (Flomax) 0.4 mg BID ORAL 08/24/19 18:00 09/22/19 19:59 08/24/19 17:51 Gregorio Thomas MD Aug 25, 2019 14:48
--- NOTE | 2019-08-25 16:15 | NUR ---
NURSE NOTES: sputum specimen collected and sent to lab, waiting for result.
--- NOTE | 2019-08-25 17:31 | Procedure Note ---
DATE OF PROCEDURE: 08/25/2019 GASTROENTEROLOGY PROCEDURE REPORT PROCEDURE: Upper gastrointestinal endoscopy with biopsy. SURGEON: Radha Lundy M.D. ANESTHESIA: Please see the separate anesthesiologist notes for details. PRE-ENDOSCOPIC DIAGNOSES: 1. Nausea and vomiting. 2. Anemia. POST-ENDOSCOPIC DIAGNOSES: 1. Mild erythema in the antrum of stomach. 2. Status post one small superficial biopsy of the gastric antrum. DESCRIPTION OF PROCEDURE: The procedure, its risks, indications, alternatives, and possible complications were explained to the patient via servomechanism assembler and an informed consent was obtained. The patient was then sedated in the left lateral decubitus position and a diagnostic upper endoscope was introduced through oropharynx and advanced to the duodenum without difficulty. The endoscope was then gradually withdrawn and mucosa examined carefully. Findings and biopsies are as listed above. The endoscope was removed. The patient was sent to recovery in good condition. COMPLICATIONS: None. RECOMMENDATIONS: 1. Follow up biopsy results. 2. Check and treat Helicobacter pylori if positive. 3. Resume oral diet. 4. Monitor laboratory results. Radha Lundy M.D. DR: BARB JOB#: [id number] CC:
--- NOTE | 2019-08-25 18:49 | NUR ---
NURSE NOTES: pt signed consent form for bone marrow biopsy. will continue to monitor.
--- NOTE | 2019-08-25 19:24 | Consultation ---
History of Present Illness General Chief Complaint: Nausea Present Illness Allergies: Coded Allergies: No Known Allergies (Unverified , 08/23/19) Medication History Scheduled Atorvastatin Calcium* (Atorvastatin Calcium*), 20 MG ORAL BEDTIME, (Reported) Clopidogrel* (Clopidogrel*), 75 MG ORAL DAILY, (Reported) Ferrous Sulfate* (Ferrous Sulfate*), 325 MG ORAL TWICE A DAY, (Reported) Icosapent Ethyl (Vascepa), 1 GM PO DAILY, (Reported) Losartan Potassium* (Losartan Potassium*), 50 MG ORAL DAILY, (Reported) Meclizine Hcl* (Meclizine*), 25 MG ORAL THREE TIMES A DAY, (Reported) Memantine Hcl* (Namenda*), 7 MG ORAL DAILY, (Reported) Pantoprazole* (Pantoprazole*), 40 MG ORAL DAILY, (Reported) Pregabalin* (Lyrica*), 75 MG ORAL THREE TIMES A DAY, (Reported) Tamsulosin HCl (Flomax), 0.4 MG ORAL DAILY, (Reported) Triazolam* (Halcion*), 0.25 MG PO QHS PRN SLEEP, (Reported) Scheduled PRN Tramadol Hcl* (Ultram*), 100 MG ORAL Q12HR PRN for For Pain, (Reported) Patient History Healthcare decision maker Resuscitation status Full Code Advanced Directive on File Physical Exam Last 24 Hour Vital Signs Date Time Temp Pulse Resp B/P (MAP) Pulse Ox O2 Delivery O2 Flow Rate FiO2 08/25/19 16:00 98.8 88 20 151/101 (118) 97 08/25/19 12:00 97.9 79 20 156/89 (111) 96 08/25/19 10:47 82 20 98 08/25/19 10:30 98.0 75 19 148/88 (108) 95 08/25/19 10:10 97.7 88 16 142/91 100 Room Air 08/25/19 10:00 87 17 166/98 100 Room Air 08/25/19 09:50 86 15 156/108 100 Nasal Cannula 3 08/25/19 09:40 87 15 159/108 100 Nasal Cannula 3 08/25/19 09:39 82 20 99 08/25/19 09:35 80 15 163/107 100 Nasal Cannula 3 08/25/19 09:31 97.0 76 17 155/89 100 Nasal Cannula 3 08/25/19 09:12 79 18 96 Room Air 21 08/25/19 09:00 Room Air 08/25/19 08:00 98.1 82 19 144/87 (106) 94 08/25/19 04:00 98.0 84 18 145/80 (101) 95 08/25/19 00:00 98.0 85 18 146/90 (108) 94 08/24/19 21:51 90 16 94 Room Air 21 08/24/19 21:00 Room Air 08/24/19 20:00 98.1 91 18 153/92 (112) 96 Intake and Output 08/24/19 08/25/19 19:00 07:00 Intake Total 740 ml 450 ml Output Total 475 ml 240 ml Balance 265 ml 210 ml Intake Oral 240 ml IV Total 500 ml 450 ml Output Urine Total 475 ml 240 ml # Voids 2 # Bowel Movements 1 1 Laboratory Tests Test 08/25/19 08:30 White Blood Count 2.5 K/UL (4.8-10.8) L Red Blood Count 3.40 M/UL (4.70-6.10) L Hemoglobin 10.2 G/DL (14.2-18.0) #L Hematocrit 29.3 % (42.0-52.0) #L Mean Corpuscular Volume 86 FL (80-99) Mean Corpuscular Hemoglobin 30.1 PG (27.0-31.0) Mean Corpuscular Hemoglobin Concent 34.9 G/DL (32.0-36.0) Red Cell Distribution Width 12.5 % (11.6-14.8) Platelet Count 55 K/UL (150-450) L Mean Platelet Volume 7.5 FL (6.5-10.1) Neutrophils (%) (Auto) % (45.0-75.0) Lymphocytes (%) (Auto) % (20.0-45.0) Monocytes (%) (Auto) % (1.0-10.0) Eosinophils (%) (Auto) % (0.0-3.0) Basophils (%) (Auto) % (0.0-2.0) Differential Total Cells Counted 100 Neutrophils % (Manual) 56 % (45-75) Lymphocytes % (Manual) 38 % (20-45) Monocytes % (Manual) 5 % (1-10) Eosinophils % (Manual) 1 % (0-3) Basophils % (Manual) 0 % (0-2) Band Neutrophils 0 % (0-8) Platelet Estimate Decreased L Platelet Morphology Normal Sodium Level 140 MMOL/L (136-145) Potassium Level 3.3 MMOL/L (3.5-5.1) L Chloride Level 104 MMOL/L (98-107) Carbon Dioxide Level 30 MMOL/L (21-32) Anion Gap 6 mmol/L (5-15) Blood Urea Nitrogen 15 mg/dL (7-18) Creatinine 1.2 MG/DL (0.55-1.30) Estimat Glomerular Filtration Rate mL/min (>60) Glucose Level 142 MG/DL (74-106) H Calcium Level 7.5 MG/DL (8.5-10.1) L Magnesium Level 2.1 MG/DL (1.8-2.4) Height (Feet): 5 Height (Inches): 5.00 Weight (Pounds): 149 Medications Current Medications Medications (Trade) Dose Ordered Sig/Kaya Route PRN Reason Start Time Stop Time Status Last Admin Dose Admin Acetaminophen (Tylenol) 500 mg Q4H PRN ORAL Mild Pain/Temp > 100.5 08/24/19 14:00 09/22/19 13:59 Albuterol/ Ipratropium (Albuterol/ Ipratropium) 3 ml Q6H PRN HHN Shortness of Breath 08/24/19 14:00 08/28/19 19:59 Dextrose/Sodium Chloride 1,000 ml @ 50 mls/hr Q20H IV 08/24/19 14:00 09/22/19 13:59 08/24/19 20:58 Mirtazapine (Remeron) 7.5 mg BEDTIME ORAL 08/25/19 21:00 09/24/19 20:59 Ondansetron HCl (Zofran) 4 mg Q6H PRN IVP Nausea & Vomiting 08/24/19 14:00 09/22/19 13:59 Pantoprazole (Protonix) 40 mg EVERY 12 HOURS IVP 08/24/19 21:00 09/22/19 20:59 08/24/19 20:57 Potassium Chloride (K-Dur) 40 meq DAILY ORAL 08/26/19 09:00 09/25/19 08:59 Tamsulosin HCl (Flomax) 0.4 mg BID ORAL 08/24/19 18:00 09/22/19 19:59 08/25/19 17:14 Assessment/Plan Assessment/Plan: Hematology Consultation REQ : Tomasz Martinez RFC: Pancytopenia DOS: 08/25/19 HPI Patient is an 88-year-old male who presents after increased nausea and vomiting. Patient had some prior history of similar symptoms in the past. Patient is currently on IV antibiotics for finger infection. Patient recently been hospitalized at [facility]. He reports having postprandial emesis denies any bloody stools. He reports having decreased stool caliber for approximately 1 year. He reports having a negative colonoscopy proximally a year ago. Prior history of appendectomy. He reports having 20 pound weight loss. Noted to have pancytopenia but the inr is wnl, heme consulted, had a egd yest and showed gastritis only. ALL No Known Allergies (Unverified , 08/23/19) Patient History Past Medical History: see triage record Reviewed Nursing Documentation: PMH: Agreed; PSxH: Agreed Nursing Documentation-PMH Past Medical History: No Stated History ROS General: Denies fatigue, fever, chills, weight loss; + weight gain as above HENT: Denies oral sores, neck masses, nasal d/c, hearing problems Vison: Denies change in vision, eye pain, redness, discharge Cardiac: As above Pulmonary: As above GI: Denies heart burn, swallowing difficulty, abdominal pain, diarrhea, constipation : As per HPI Neuro: Denies seizure, weakness, numbness Endo: Denies heat/cold intolerance, weight changes, polyuria, polydipsia Heme/Onc: Denies unusual bleeding, bruising, clotting MSK: Denies join pain, swelling, muscle aches Mental Health: Denies anxiety, depression, mood changes PE: Vitals: reviewed General Appearance: NAD HEENT: normocephalic, atraumatic Neck: non-tender, normal alignment Respiratory/Chest: normal breath sounds bilaterally Cardiovascular/Chest: normal peripheral pulses, normal rate Abdomen: normal bowel sounds, soft, nontender Extremities: normal range of motion Labs: noted Imaging: reviewed Assessment and Recs: # Pancytopenia -- multiple etiologies could be related to underlying liver disease, medication-induced, infection versus viral syndrome versus underlying bone marrow cause --> peripheral smear has been ordered and does not show significant abnormalities --> Medications have been reviewed --> Continue to monitor for improvement, trend cbc --> Hep panel and HIV have been ordered --> US abd ordered to r/o cirrhosis and hepatosplenomegaly --> reverse isolation if ANC is <2000 --> Give neupogen if ANC <1000 --> Transfuse if hgb <7, with 1 unit prbc --> plan for bone marrow biopsy if no other causes are found--> Dw pathologist for 08/26/19 # Failure to thrive (FTT) - decreased bmi and low protein --> have ordered for cea level --> will obtain q3 day caloric counts --> may consider mirtazapine as appetite stimulant --> GI consult on a prn basis, as needed for endosc--> egd done and showed gastritis # Dehydration --> with elevated bun and cr --> ivf were given today # Postprandial emesis. --> on zofran prn basis # Dvt ppx heparin prn Appreciate consultation and Kaushal Estevez RN, MD Aug 25, 2019 19:24
--- NOTE | 2019-08-25 19:31 | NUR ---
HAND-OFF: Report given to ANDRZEJ MCCABE.
[2019-08-25] MEDS ORDERED: MEMANTINE HCL ER7 MG PO (19:44)
[2019-08-25] MEDS ORDERED: PREDNISONE20 MG ORAL (19:46)
[2019-08-25] MEDS ORDERED: ZYVOX600 MG ORAL (19:46)
[2019-08-25] MEDS ORDERED: LEVOFLOXACIN500 MG ORAL (19:46)
[2019-08-25] MEDS ORDERED: REGLAN5 MG ORAL (19:46)
[2019-08-25] MEDS: D5NS 1,000 ML IV SCH (20:48)
--- NOTE | 2019-08-25 21:19 | General Progress Note ---
Assessment/Plan Problem List: (1) Pancytopenia ICD Codes: D61.818 - Other pancytopenia SNOMED: 800727960 (2) Dehydration ICD Codes: E86.0 - Dehydration SNOMED: 66242472 Status: progressing Assessment/Plan: afebrile confused needs snf placement vitals stable reviewed chart and labs Subjective ROS Limited/Unobtainable: Yes Allergies: Coded Allergies: No Known Allergies (Unverified , 08/23/19) Objective Last 24 Hour Vital Signs Date Time Temp Pulse Resp B/P (MAP) Pulse Ox O2 Delivery O2 Flow Rate FiO2 08/25/19 19:30 78 18 95 Room Air 21 08/25/19 16:00 98.8 88 20 151/101 (118) 97 08/25/19 12:00 97.9 79 20 156/89 (111) 96 08/25/19 10:47 82 20 98 08/25/19 10:30 98.0 75 19 148/88 (108) 95 08/25/19 10:10 97.7 88 16 142/91 100 Room Air 08/25/19 10:00 87 17 166/98 100 Room Air 08/25/19 09:50 86 15 156/108 100 Nasal Cannula 3 08/25/19 09:40 87 15 159/108 100 Nasal Cannula 3 08/25/19 09:39 82 20 99 08/25/19 09:35 80 15 163/107 100 Nasal Cannula 3 08/25/19 09:31 97.0 76 17 155/89 100 Nasal Cannula 3 08/25/19 09:12 79 18 96 Room Air 21 08/25/19 09:00 Room Air 08/25/19 08:00 98.1 82 19 144/87 (106) 94 08/25/19 04:00 98.0 84 18 145/80 (101) 95 08/25/19 00:00 98.0 85 18 146/90 (108) 94 08/24/19 21:51 90 16 94 Room Air 21 Intake and Output 08/24/19 08/25/19 19:00 07:00 Intake Total 740 ml 450 ml Output Total 475 ml 240 ml Balance 265 ml 210 ml Intake Oral 240 ml IV Total 500 ml 450 ml Output Urine Total 475 ml 240 ml # Voids 2 # Bowel Movements 1 1 Laboratory Tests 08/25/19 08:30: White Blood Count 2.5L, Red Blood Count 3.40L, Hemoglobin 10.2#L, Hematocrit 29.3#L, Mean Corpuscular Volume 86, Mean Corpuscular Hemoglobin 30.1, Mean Corpuscular Hemoglobin Concent 34.9, Red Cell Distribution Width 12.5, Platelet Count 55L, Mean Platelet Volume 7.5, Neutrophils (%) (Auto) , Lymphocytes (%) ( Auto) , Monocytes (%) (Auto) , Eosinophils (%) (Auto) , Basophils (%) (Auto) , Differential Total Cells Counted 100, Neutrophils % (Manual) 56, Lymphocytes % ( Manual) 38, Monocytes % (Manual) 5, Eosinophils % (Manual) 1, Basophils % ( Manual) 0, Band Neutrophils 0, Platelet Estimate DecreasedL, Platelet Morphology Normal, Sodium Level 140, Potassium Level 3.3L, Chloride Level 104, Carbon Dioxide Level 30, Anion Gap 6, Blood Urea Nitrogen 15, Creatinine 1.2, Estimat Glomerular Filtration Rate , Glucose Level 142H, Calcium Level 7.5L, Magnesium Level 2.1, Carcinoembryonic Antigen [Pending], Prostate Specific Antigen 0.25, Hepatitis A IgM Antibody [Pending], Hepatitis B Surface Antigen [ Pending], Hepatitis B Core IgM Antibody [Pending], Hepatitis C Antibody [Pending ] Height (Feet): 5 Height (Inches): 5.00 Weight (Pounds): 149 General Appearance: confused Neck: supple Cardiovascular: regular rhythm Respiratory/Chest: lungs clear Shawn Castañeda MD Aug 25, 2019 21:19
--- NOTE | 2019-08-25 23:03 | Pulmonology Progress Note ---
Assessment/Plan Assessment/Plan Pulmonary Progress Note HPI Patient is an 88-year old man admitted with nausea and vomiting, worse on eating , noted to have dehydration. Recently on IV antibiotics for finger infection at [facility]. Previously had a negative colonoscopy approximately a year ago. Prior history of appendectomy. He reports having 20 pound weight loss. Denies dysuria/fevers.Denies cough, SOB, chest pain. 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 H+H stable, S/p Upper GI endoscopy Allergies: No Known Allergies Past Medical History: Finger infection All Other Systems: negative except mentioned in HPI Physical Exam Vital Signs Noted General Appearance: normal inspection, alert, GCS 15, Chronically Ill, mild wasting, pale Head: atraumatic ENT: normal ENT inspection, hearing grossly normal, moist mm Neck: normal inspection, full range of motion, supple, no bony tend Respiratory: normal inspection, lungs clear, normal breath sounds, no respiratory distress, no retraction, no wheezing Cardiovascular: regular rate, rhythm, normal HS1, HS2, no edema Gastrointestinal: normal inspection, normal bowel sounds, soft, no guarding, no hernia, other - surgical scar Genitourinary: no CVA tenderness Musculoskeletal: normal inspection, back normal, normal range of motion Neurologic: normal inspection, alert, responsive, speech normal Impression: Recent IV antibiotics for finger infection Nausea and Vomiting, normal Amylase, no intra-abdominal abnormality on CT abdomen Anemia stable, s/p upper GI scope Pancytopenia Basal ILD/Bronchiectatic changes Weight loss, unintentional Dehydration ASVCD - elevated NPA Plan: IVF PRN Monitor labs Transfuse PRN O2 PRN HHN PRN SCD UA CXR - no infiltartes Will need outpatient CT chest/PFT Labs noted EKG: Rate: normal Rhythm: NSR ST Segments: no acute changes CXR: No infiltrates Subjective ROS Limited/Unobtainable: No Allergies: Coded Allergies: No Known Allergies (Unverified , 08/23/19) Objective Last 24 Hour Vital Signs Date Time Temp Pulse Resp B/P (MAP) Pulse Ox O2 Delivery O2 Flow Rate FiO2 08/25/19 20:00 98.2 87 18 100/92 (95) 95 08/25/19 19:30 78 18 95 Room Air 21 08/25/19 16:00 98.8 88 20 151/101 (118) 97 08/25/19 12:00 97.9 79 20 156/89 (111) 96 08/25/19 10:47 82 20 98 08/25/19 10:30 98.0 75 19 148/88 (108) 95 08/25/19 10:10 97.7 88 16 142/91 100 Room Air 08/25/19 10:00 87 17 166/98 100 Room Air 08/25/19 09:50 86 15 156/108 100 Nasal Cannula 3 08/25/19 09:40 87 15 159/108 100 Nasal Cannula 3 08/25/19 09:39 82 20 99 08/25/19 09:35 80 15 163/107 100 Nasal Cannula 3 08/25/19 09:31 97.0 76 17 155/89 100 Nasal Cannula 3 08/25/19 09:12 79 18 96 Room Air 21 08/25/19 09:00 Room Air 08/25/19 08:00 98.1 82 19 144/87 (106) 94 08/25/19 04:00 98.0 84 18 145/80 (101) 95 08/25/19 00:00 98.0 85 18 146/90 (108) 94 Intake and Output 08/24/19 08/25/19 19:00 07:00 Intake Total 740 ml 450 ml Output Total 475 ml 240 ml Balance 265 ml 210 ml Intake Oral 240 ml IV Total 500 ml 450 ml Output Urine Total 475 ml 240 ml # Voids 2 # Bowel Movements 1 1 Laboratory Tests 08/25/19 08:30: White Blood Count 2.5L, Red Blood Count 3.40L, Hemoglobin 10.2#L, Hematocrit 29.3#L, Mean Corpuscular Volume 86, Mean Corpuscular Hemoglobin 30.1, Mean Corpuscular Hemoglobin Concent 34.9, Red Cell Distribution Width 12.5, Platelet Count 55L, Mean Platelet Volume 7.5, Neutrophils (%) (Auto) , Lymphocytes (%) ( Auto) , Monocytes (%) (Auto) , Eosinophils (%) (Auto) , Basophils (%) (Auto) , Differential Total Cells Counted 100, Neutrophils % (Manual) 56, Lymphocytes % ( Manual) 38, Monocytes % (Manual) 5, Eosinophils % (Manual) 1, Basophils % ( Manual) 0, Band Neutrophils 0, Platelet Estimate DecreasedL, Platelet Morphology Normal, Sodium Level 140, Potassium Level 3.3L, Chloride Level 104, Carbon Dioxide Level 30, Anion Gap 6, Blood Urea Nitrogen 15, Creatinine 1.2, Estimat Glomerular Filtration Rate , Glucose Level 142H, Calcium Level 7.5L, Magnesium Level 2.1, Carcinoembryonic Antigen [Pending], Prostate Specific Antigen 0.25, Hepatitis A IgM Antibody [Pending], Hepatitis B Surface Antigen [ Pending], Hepatitis B Core IgM Antibody [Pending], Hepatitis C Antibody [Pending ] Current Medications Medications (Trade) Dose Ordered Sig/Kaya Route PRN Reason Start Time Stop Time Status Last Admin Dose Admin Acetaminophen (Tylenol) 500 mg Q4H PRN ORAL Mild Pain/Temp > 100.5 08/24/19 14:00 09/22/19 13:59 Albuterol/ Ipratropium (Albuterol/ Ipratropium) 3 ml Q6H PRN HHN Shortness of Breath 08/24/19 14:00 08/28/19 19:59 Dextrose/Sodium Chloride 1,000 ml @ 50 mls/hr Q20H IV 08/24/19 14:00 09/22/19 13:59 08/25/19 20:48 Mirtazapine (Remeron) 7.5 mg BEDTIME ORAL 08/25/19 21:00 09/24/19 20:59 08/25/19 20:47 Ondansetron HCl (Zofran) 4 mg Q6H PRN IVP Nausea & Vomiting 08/24/19 14:00 09/22/19 13:59 Pantoprazole (Protonix) 40 mg EVERY 12 HOURS IVP 08/24/19 21:00 09/22/19 20:59 08/25/19 20:47 Potassium Chloride (K-Dur) 40 meq DAILY ORAL 08/26/19 09:00 09/25/19 08:59 Tamsulosin HCl (Flomax) 0.4 mg BID ORAL 08/24/19 18:00 09/22/19 19:59 08/25/19 17:14 Sherif Birch MD Aug 25, 2019 23:03
--- NOTE | 2019-08-25 23:23 | General Progress Note ---
Assessment/Plan Status: progressing Assessment/Plan: Assessment - N/V, ? etiology, improved - Weight loss - pancytopenia, ? marrow d/o - Azotemia - hematuria - basilar lung fibrosis - diverticulosis - hiatal hernia - ASCVD - minimal gastritis per EGD Recommendations - PPI - clears / advance as tolerated - check OB - Heme evaluation Subjective Allergies: Coded Allergies: No Known Allergies (Unverified , 08/23/19) Subjective seen in GI lab this am s/p blood transfusion platelets better no vomiting Objective Last 24 Hour Vital Signs Date Time Temp Pulse Resp B/P (MAP) Pulse Ox O2 Delivery O2 Flow Rate FiO2 08/25/19 20:00 98.2 87 18 100/92 (95) 95 08/25/19 19:30 78 18 95 Room Air 21 08/25/19 16:00 98.8 88 20 151/101 (118) 97 08/25/19 12:00 97.9 79 20 156/89 (111) 96 08/25/19 10:47 82 20 98 08/25/19 10:30 98.0 75 19 148/88 (108) 95 08/25/19 10:10 97.7 88 16 142/91 100 Room Air 08/25/19 10:00 87 17 166/98 100 Room Air 08/25/19 09:50 86 15 156/108 100 Nasal Cannula 3 08/25/19 09:40 87 15 159/108 100 Nasal Cannula 3 08/25/19 09:39 82 20 99 08/25/19 09:35 80 15 163/107 100 Nasal Cannula 3 08/25/19 09:31 97.0 76 17 155/89 100 Nasal Cannula 3 08/25/19 09:12 79 18 96 Room Air 21 08/25/19 09:00 Room Air 08/25/19 08:00 98.1 82 19 144/87 (106) 94 08/25/19 04:00 98.0 84 18 145/80 (101) 95 08/25/19 00:00 98.0 85 18 146/90 (108) 94 Intake and Output 08/24/19 08/25/19 19:00 07:00 Intake Total 740 ml 450 ml Output Total 475 ml 240 ml Balance 265 ml 210 ml Intake Oral 240 ml IV Total 500 ml 450 ml Output Urine Total 475 ml 240 ml # Voids 2 # Bowel Movements 1 1 Laboratory Tests 08/25/19 08:30: White Blood Count 2.5L, Red Blood Count 3.40L, Hemoglobin 10.2#L, Hematocrit 29.3#L, Mean Corpuscular Volume 86, Mean Corpuscular Hemoglobin 30.1, Mean Corpuscular Hemoglobin Concent 34.9, Red Cell Distribution Width 12.5, Platelet Count 55L, Mean Platelet Volume 7.5, Neutrophils (%) (Auto) , Lymphocytes (%) ( Auto) , Monocytes (%) (Auto) , Eosinophils (%) (Auto) , Basophils (%) (Auto) , Differential Total Cells Counted 100, Neutrophils % (Manual) 56, Lymphocytes % ( Manual) 38, Monocytes % (Manual) 5, Eosinophils % (Manual) 1, Basophils % ( Manual) 0, Band Neutrophils 0, Platelet Estimate DecreasedL, Platelet Morphology Normal, Sodium Level 140, Potassium Level 3.3L, Chloride Level 104, Carbon Dioxide Level 30, Anion Gap 6, Blood Urea Nitrogen 15, Creatinine 1.2, Estimat Glomerular Filtration Rate , Glucose Level 142H, Calcium Level 7.5L, Magnesium Level 2.1, Carcinoembryonic Antigen [Pending], Prostate Specific Antigen 0.25, Hepatitis A IgM Antibody [Pending], Hepatitis B Surface Antigen [ Pending], Hepatitis B Core IgM Antibody [Pending], Hepatitis C Antibody [Pending ] Height (Feet): 5 Height (Inches): 5.00 Weight (Pounds): 149 Objective Thin man NCAT supple CTA RR Abd soft NT ND no edema non focal Radha Lundy MD Aug 25, 2019 23:23
[2019-08-26] VITALS: BP 146/82
[2019-08-26 04:00] VITALS: BP 149/90
--- NOTE | 2019-08-26 06:44 | NUR ---
NURSE NOTES: Received order morphine 2mg onetime dose before procedure.(bonemarrow biopsy). Order carried out. Will endorsed to next shift.
--- NOTE | 2019-08-26 07:14 | NUR ---
HAND-OFF: Report given to ESTELLE Vu.
--- NOTE | 2019-08-26 07:30 | NUR ---
NURSE NOTES: Received pt from ANDRZEJ RN. Pt is awake and orient x4. pt is in RA, no SOB or acute respiratory distress noted. pt has intact iv access LH 22G is running well. pt is eating breakfast independently. all needs attended, bed is locked and is in the lowest position, call light within easy reach. will continue to monitor.
[2019-08-26 08:00] VITALS: BP 166/72
[2019-08-26] MEDS ORDERED: Morphine Sulfate 2mg/ml Inj(IV/IM USE ONLY) IVP SCH (08:00)
--- NOTE | 2019-08-26 08:40 | NUR ---
NURSE NOTES: Dr HERNANDEZ called and ordered to D/C pt to SNF after bone marrow biopsy done, resume hospital meds and D/C home meds, and Dr BARCENAS iv fluid. all orders noted and carried out. will continue to monitor. Addendum: 08/26/19 at 0850 by Horace Cruz RN Dr HERNANDEZ is aware about HTN so D/C iv fluid.
[2019-08-26] MEDS: Tamsulosin 0.4mg cap ORAL SCH (08:59)
[2019-08-26] MEDS: Pantoprazole Inj IVP SCH (08:59)
--- NOTE | 2019-08-26 09:28 | NUR ---
DISCHARGED PLANNED: SPOKE TO MICHAEL FROM [facility] PATIENT ACCEPTED TO [facility] T: [phone] FOR NURSE TO NURSE REPORT ROOM# 114A [facility] WILL CALL WHEN PATIENT IS READY TO TRANSFER SPOKE TO VIRGIE ARROYO (DAUGHTER) TO INFORM OF DISCHARGE POST BONE MARROW BIOPSY
[2019-08-26] MEDS ORDERED: Lidocaine 2% MPF 5ml Vial INJ SCH (09:30)
--- NOTE | 2019-08-26 10:40 | NUR ---
NURSE NOTES: pt refused bone marrow biopsy, Dr HERNANDEZ notified and ordered to D/C pt to SNF as order. noted and carried out. will continue to monitor.
--- NOTE | 2019-08-26 11:09 | NUR ---
NURSE NOTES: Dr HERNANDEZ called back again and changed order to resume home meds and D/C hospital meds. noted and carried out.
[2019-08-26 12:00] VITALS: BP 153/92
--- NOTE | 2019-08-26 12:37 | NUR ---
NURSE NOTES: Pt has D/C order, all discharge assessments and instructions done and pt verbally confirmed to understand all. pt is stable, V/S stable. Dr HERNANDEZ visited pt and he is aware about sputum culture result, no new order to RN. all belongings are with pt but pt doesn't have any ring and explained he didn't have any. pt's daughter BEN ARROYO is aware. Report given to SNF RN LISA. Pt is ready to leave, waiting for ambulance to pickle sorter pt. will continue to monitor.
--- NOTE | 2019-08-26 12:57 | Infectious Diseases Prog Note ---
Assessment/Plan Assessment/Plan IMPRESSION: Pancytopenia. Recent MRSA sepsis and hand osteomyelitis Hypertension, prostatic hypertrophy, Alzheimer dementia, chronic kidney disease. RECOMMENDATION: Observe off antibiotic Subjective ROS Limited/Unobtainable: Yes Constitutional: Reports: no symptoms Respiratory: Reports: no symptoms Gastrointestinal/Abdominal: Reports: no symptoms Genitourinary: Reports: no symptoms Allergies: Coded Allergies: No Known Allergies (Unverified , 08/23/19) Objective Vital Signs Last 24 Hour Vital Signs Date Time Temp Pulse Resp B/P (MAP) Pulse Ox O2 Delivery O2 Flow Rate FiO2 08/26/19 12:00 97.7 83 18 153/92 (112) 96 08/26/19 09:00 Room Air 08/26/19 08:03 80 18 95 Room Air 21 08/26/19 08:00 97.8 91 20 166/72 (103) 100 08/26/19 04:00 98.8 20 16 149/90 (109) 97 08/26/19 00:00 98.0 88 16 146/82 (103) 99 08/25/19 21:00 Room Air 08/25/19 20:00 98.2 87 18 100/92 (95) 95 08/25/19 19:30 78 18 95 Room Air 21 08/25/19 16:00 98.8 88 20 151/101 (118) 97 Height (Feet): 5 Height (Inches): 5.00 Weight (Pounds): 149 General Appearance: no acute distress HEENT: mucous membranes moist Respiratory/Chest: normal breath sounds Cardiovascular: normal rate Abdomen: soft, non tender Extremities: no edema Neurologic/Psychiatric: alert, responsive Microbiology Date/Time Source Procedure Growth Status 08/25/19 16:15 Sputum Gram Stain - Final Resulted 08/25/19 16:15 Sputum Culture - Preliminary Gram Negative Mahesh Resulted Current Medications Medications (Trade) Dose Ordered Sig/Kaya Route PRN Reason Start Time Stop Time Status Last Admin Dose Admin Acetaminophen (Tylenol) 500 mg Q4H PRN ORAL Mild Pain/Temp > 100.5 08/24/19 14:00 09/22/19 13:59 Albuterol/ Ipratropium (Albuterol/ Ipratropium) 3 ml Q6H PRN HHN Shortness of Breath 08/24/19 14:00 08/28/19 19:59 Mirtazapine (Remeron) 7.5 mg BEDTIME ORAL 08/25/19 21:00 09/24/19 20:59 08/25/19 20:47 Ondansetron HCl (Zofran) 4 mg Q6H PRN IVP Nausea & Vomiting 08/24/19 14:00 09/22/19 13:59 Pantoprazole (Protonix) 40 mg EVERY 12 HOURS IVP 08/24/19 21:00 09/22/19 20:59 08/26/19 08:59 Potassium Chloride (K-Dur) 40 meq DAILY ORAL 08/26/19 09:00 09/25/19 08:59 08/26/19 08:59 Tamsulosin HCl (Flomax) 0.4 mg BID ORAL 08/24/19 18:00 09/22/19 19:59 08/26/19 08:59 Gregorio Thomas MD Aug 26, 2019 12:57
--- NOTE | 2019-08-26 13:15 | NUR ---
NURSE NOTES: pt is stagble, V/S stable, IV access D/C. pt left hospital with accompany of ambulance personnel.
--- NOTE | 2019-08-26 15:54 | Cardiology Report ---
APPROVED REPORT EKG Measurement Heart [id number] Normal sinus rhythm Normal ECG
--- NOTE | 2019-08-27 20:43 | Diagnostic Imaging Report ---
APPROVED REPORT CPT Code: 01241 Present Symptoms Lower Extremity Pain: Bilateral BILATERAL: Imaging reveals a patent deep venous system bilaterally. There is no evidence of thrombus within the common femoral, superficial femoral, popliteal or tibial segments. The greater saphenous veins are within normal limits. Doppler indicates normal spontaneous flow within these segments.
--- NOTE | 2019-08-28 09:33 | Discharge Summary ---
Discharge Summary Discharge Summary _ DATE OF ADMISSION: 08/23/2019 DATE OF DISCHARGE: 08/26/2019 DISCHARGED BY: Dr. Shawn Martinez CONSULTANTS: Dr. Radha Birch [facility] HOSPITAL COURSE: Patient is an 88-year-old Romanian speaking male, who presented to ED due to increased vomiting and weight loss. Patient was cachectic. Patient had similar symptoms in the past. He is on IV antibiotics for a finger infection. He was recently discharged from [facility]. He reported postprandial emesis. He denied bloody stools. Reported decreased stool caliber for approximately 1 year. He reported negative colonoscopy a year prior. He had prior history of appendectomy. He reported 20 pound weight loss. He has medical history significant for iron deficiency anemia, hyperlipidemia, hypertension, GERD, neuropathy, BPH, chronic pain syndrome, insomnia, and weight loss. On evaluation at the ED, vital signs were stable. Blood work showed WBC 2.9. Hemoglobin 7.6, hematocrit 21, platelet count 94. BUN was 27, creatinine elevated to 1.6. LFTs were normal. Alkaline phosphatase normal. Lipase was normal. Abdominal and pelvic CT did not show any acute findings. There was a hypodense mass in the right kidney measuring about 2 cm. Prostate calcification noted. Discrete diverticula noted in the colon. He was given IV fluid. He was admitted for evaluation of pancytopenia, weight loss and dehydration. He was initially admitted to telemetry. He was given a blood transfusion. He was followed by GI. He was initially started on clear liquid diet. He was given proton pump inhibitors. Thai Masseur was consulted for findings of interstitial lung disease on CT. He was placed on O2 support. He was given nebulizer therapy. Patient was recommended outpatient CT and PFT. Bilateral lower extremity venous duplex was negative for acute DVT. ID was consulted. Patient was admitted to [facility] for MRSA sepsis and first left carpometacarpal osteomyelitis. Pancytopenia was attributed to taking Zyvox. He was observed off antibiotics. Hemoglobin dropped to 6.9. Patient underwent upper endoscopy. Findings showed mild erythema in the antrum of of the stomach, gastric antrum was biopsied. Hematology was consulted. HIV screen was negative. Hepatitis panel still pending. CEA pending. PSA normal. He received 2 units packed RBC blood transfusion. Hemoglobin levels improved. He was cleared for discharge home. To follow-up with [facility] as outpatient. FINAL DIAGNOSES: Pancytopenia status post blood transfusion Recent MRSA sepsis and left hand osteomyelitis Hypertension Prostatic hypertrophy Alzheimer's dementia Chronic kidney disease Nausea and vomiting, etiology unknown Weight loss Interstitial lung disease/bronchiectasis Diverticulosis Hiatal hernia Minimal gastritis per recent EGD ASCVD DISPOSITION: Patient was discharged home. DISCHARGE MEDICATIONS: Refer to Discharge Medication List. DISCHARGE INSTRUCTIONS: Follow-up in a week. I have been assigned to complete a discharge summary on this account, I was not involved with the patient's management.--STONEY Ortiz Jacqueline Robles NP Aug 28, 2019 09:33
== END 2019-08-26 13:42 | DRG 809 ==
LOC: EDBD 09:50 → EMR 10:29 → 2E 11:49 → EDBEDREQ 12:11 → 2E 15:37 → 4E 08-24 13:05
PROC: 30233N1 Transfusion of Nonautologous Red Blood Cells into Peripheral Vein, Percutaneous Approach (ICD-10-PCS; principal; 2019-08-24)
PROC: 0DB78ZX Excision of Stomach, Pylorus, Via Natural or Artificial Opening Endoscopic, Diagnostic (ICD-10-PCS; 2019-08-25)
DX: D61.818 Other pancytopenia (principal); J84.9 Interstitial pulmonary disease, unspecified; E86.0 Dehydration; R11.2 Nausea with vomiting, unspecified; E78.5 Hyperlipidemia, unspecified; K21.9 Gastro-esophageal reflux disease without esophagitis; G62.9 Polyneuropathy, unspecified; N40.0 Benign prostatic hyperplasia without lower urinary tract symptoms; G89.4 Chronic pain syndrome; Z79.02 Long term (current) use of antithrombotics/antiplatelets; G47.00 Insomnia, unspecified; Z86.14 Personal history of Methicillin resistant Staphylococcus aureus infection; G30.9 Alzheimer's disease, unspecified; F02.80 Dementia in other diseases classified elsewhere, unspecified severity, without behavioral disturbance, psychotic disturbance, mood disturbance, and anxiety; I12.9 Hypertensive chronic kidney disease with stage 1 through stage 4 chronic kidney disease, or unspecified chronic kidney disease; K57.90 Diverticulosis of intestine, part unspecified, without perforation or abscess without bleeding; K44.9 Diaphragmatic hernia without obstruction or gangrene; I25.10 Atherosclerotic heart disease of native coronary artery without angina pectoris; J84.10 Pulmonary fibrosis, unspecified; K29.70 Gastritis, unspecified, without bleeding; R62.7 Adult failure to thrive; R63.4 Abnormal weight loss; N18.9 Chronic kidney disease, unspecified
CPT/HCPCS: 36415; 71045; 74176; 80048; 80053; 80061; 81001; 81003; 82378; 82607; 82728; 82746; 82962; 82977; 83036; 83540; 83550; 83690; 83735; 83880; 84100; 84153; 84300; 84443; 84484; 84550; 85007; 85025; 85610; 85730; 86140; 86703; 86705; 86709; 86803; 86850; 86900; 86901; 86920; 87070; 87181; 87205; 87340; 93005; 93970; 94003; 94150; 94640; 94664; 96361; 96374; 99285; J2405; J7030; J7620; J8499